=== PATIENT | female | born 1955 | race Hispanic/Latino ===

== ENCOUNTER 2020-04-30 14:49 | Emergency (ER) | payer OTHER, SELFPAY ==
--- OUTSIDE RECORDS SUMMARY | 2020-04-30 15:07 | XMS REPORT | Clinical Summary ---
:1955 Author Organization [facility] Address [address] [place] [address] Care Team Providers Name Role Phone Sharad Becker MD Primary Care Provider Allergies Active Allergy Reactions Severity Noted Date Comments Promethazine 07/23/2016 Medications Medication Sig Dispensed Refills Start Date End Date Status menthol-zinc oxide Apply 1 each 1 Tube 0 02/10/2017 Active (CALMOSEPTINE) topically 2 (two) 0.44-20.6 % times a day as ointmentIndications: needed (for skin Internal hemorrhoids irritation). with complication Active Problems Problem Noted Date Internal hemorrhoids with complication 11/11/2016 Constipation 11/11/2016 Anal spasm 07/06/2016 Internal hemorrhoids 07/06/2016 Rectal pain 07/06/2016 Constipation by outlet dysfunction 07/06/2016 Overview: "Urgent Desire for Stool" Social History Tobacco Use Types Packs/Day Years Used Date Never Smoker Sex Assigned at Date Recorded Not on file Job Start Date Occupation Industry Not on file Not on file Not on file Travel History Travel Start Travel End No recent travel history available. Last Filed Vital Signs Not on file Plan of Treatment Health Maintenance Due Date Last Done Comments CERVICAL CANCER SCREENING 1978 BREAST CANCER SCREENING 2007 COLONOSCOPY SCREENING 2007 SHINGLES VACCINES (#1) 2007 INFLUENZA VACCINE 04/20/2020 Results Not on fileafter 04/30/2019 Insurance Payer Benefit Plan / Group Subscriber ID Effective Phone Addre ss Type Dates MEDICARE MEDICARE PART A AND B xxxxxxxxxx 2014-Zina [facility] [place] [facility] xxxxxxxxx 2017-Zina HMO/PPO CHOICE/CHOICE + nt ([place]) [place] [address] Advance Directives For more information, please contact: [phone] Type Date Recorded Patient Inspector Electromechanical Explanati on Advance Directives, Living Will and Medical Power of Metal Slitter
--- OUTSIDE RECORDS SUMMARY | 2020-04-30 15:08 | XMS REPORT | Summary of Care ---
:1955 Author Organization [facility] Address [address] [place] [address] Care Team Providers Name Role Phone RositaSharad Elton Unavailable Elton Mai Primary Care Provider Reason for Visit Reason Comments Refill Request Encounter Details Date Type Department Care Team Description 03/25/2020 Telephone [facility] Endocrinology- Kita Perdomo MD Refill Request [address] [address] [address] [place] [address] [phone] Allergies Active Allergy Reactions Severity Noted Date Comments Etodolac Extra pyramidal effects 05/11/2018 Promethazine Hcl Other - See comments 07/13/2018 Pat ient states it makes her " Jumpy " documented as of this encounter (statuses as of 03/25/2020) Medications Medication Sig Dispensed Refills Start End Date Status Date ASPIRIN 81 MG ORAL 1 Tab Oral 60 0 Active CHEW DAILY 7 lisinopril 5 mg Take 5 mg by 0 A ctive tablet mouth daily. LORazepam 0.5 mg Take 2 mg by 0 Active tablet mouth. HYDROXYZINE PAMOATE Take 25 mg by 0 Active ORAL mouth 3 (three) times daily. busPIRone 7.5 mg Take 7.5 mg by 0 Active tablet mouth 3 (three) times daily. lancets (ONE TOUCH Use as 300 Each 1 A ctive DELICA) 33 gauge directed, TID, 8 Misc DX:E11.9 blade lancet, Use as 180 Each 3 Active safety (BD directed. 8 MICROTAINER LANCET) Twice daily 1.5 X 2 mm MiscIndications: Type 2 diabetes mellitus without complication, without long-term current use of insulin estradiol 0.01 % INSERT 1 GRAM 0 Active (0.1 mg/gram) VAGINALLY 3 8 vaginal cream TIMES PER WEEK (WEDNESDAY, WEDNESDAY AND WEDNESDAY) lithium carbonate TAKE 1 TABLET 0 Active 300 mg tablet BY MOUTH 8 EVERYDAY AT BEDTIME zolpidem 10 mg 0 Activ e tablet 8 dulaglutide inject 0.75 6 mL 2 Active (TRULICITY) 0.75 mcg under the 9 mg/0.5 mL skin weekly. PnIjIndications: Type 2 diabetes mellitus without complication, without long-term current use of insulin levothyroxine 100 Take 1 tablet 90 tablet 1 Active mcg by mouth every 0 tabletIndications: morning. Primary hypothyroidism metformin ER 500 mg Take 1 tablet 180 tablet 1 Active 24 hr by mouth 2 0 tabletIndications: (two) times Type 2 diabetes daily with mellitus without meals. complication, without long-term current use of insulin atorvastatin 80 mg Take 1 tablet 90 tablet 0 Active tabletIndications: by mouth at 0 Dyslipidemia bedtime. dapagliflozin Take 1 tablet 90 tablet 0 Ac tive (FARXIGA) 10 mg by mouth 0 tablet daily. ARIPiprazole 15 mg Take 1 tablet 0 Active tablet by mouth. 7 pioglitazone 30 mg Take 1 tablet 90 tablet 1 Active tabletIndications: by mouth 0 Type 2 diabetes daily. mellitus without complication, without long-term current use of insulin blood sugar Use to check 200 Strip 3 Activ e diagnostic (BLOOD blood sugar 2X 0 GLUCOSE TEST) daily. stripIndications: DX:E11.9 Type 2 diabetes mellitus without complication, without long-term current use of insulin Blood-Glucose Meter Use as 1 Each 0 Active (BLOOD GLUCOSE directed 2x 0 MONITORING) daily DX: KitIndications: E11.9 Type 2 diabetes mellitus without complication, without long-term current use of insulin Blood-Glucose Meter Use as 1 Each 0 03/25/20 Discontinued (BLOOD GLUCOSE directed 0 20 (Reor todd) MONITORING) KitIndications: Type 2 diabetes mellitus without complication, without long-term current use of insulin documented as of this encounter (statuses as of 03/25/2020) Active Problems Problem Noted Date Primary hypothyroidism 05/11/2018 Dyslipidemia 05/11/2018 Chest pain 10/13/2006 Overview: ICD10 Diagnosis Term Pc Installation Engineer Utility Essential hypertension 10/13/2006 Overview: ICD10 Diagnosis Term Pc Installation Engineer Utility HLD (hyperlipidemia) 10/13/2006 Overview: ICD10 Diagnosis Term Pc Installation Engineer Utility Type 2 diabetes mellitus without complications 007 Overview: ICD10 Diagnosis Term Pc Installation Engineer Utility documented as of this encounter (statuses as of 03/25/2020) Immunizations Name Administration Dates Next Due Influenza Virus Vaccine 06/09/2019, 06/08/2018 Pneumococcal Polysaccharide, PPSV23 (PNEUMOVAX) 06/13/2019 documented as of this encounter Social History Tobacco Use Types Packs/Day Years Used Date Former Smoker Quit: 1990 Smokeless Tobacco: Never Used Alcohol Use Drinks/Week oz/Week Comments No Sex Assigned at Date Recorded Not on file Job Start Date Occupation Industry Not on file Not on file Not on file Travel History Travel Start Travel End No recent travel history available. COVID-19 Exposure Response Date Recorded In the last month, have you been in contact with No / Unsure 03/25/2020 2:10 PM CDT someone who was confirmed or suspected to have Coronavirus / COVID-19? documented as of this encounter Last Filed Vital Signs Not on filedocumented in this encounter Plan of Treatment Date Type Specialty Care Team Description 07/08/2020 Office Visit Endocrinology Diabetes & TraesiKita gomez MD Metabolism [address] [place] [address] Health Maintenance Due Date Last Done Comments HEPATITIS C (HCV) SCREEN 1955 DTaP,Tdap,and Td Vaccines (1 - 1968 Tdap) Depression Screening 1969 Breast Cancer Screening 1997 (MAMMOGRAM) COLONOSCOPY 2007 Zoster Recombinant Vaccine 2007 (SHINGRIX) (1 of 2) HgA1C 05/15/2020 11/15/2019, 01/09/2019, 07/13/2018, Additional history exists INFLUENZA VACCINE (#1) 2020 06/09/2019, 06/08/2018 LDL-C 06/08/2020 06/08/2019, 07/13/2018, 10/13/2006 CREATININE (SERUM) 06/15/2020 06/15/2019, 07/13/2018, 10/14/2006, Additional history exists URINE MICROALBUMIN 07/11/2020 07/11/2019 EYE EXAM 08/29/2020 08/29/2019 FOOT EXAM 11/15/2020 11/15/2019, 11/15/2019, 07/11/2019, Additional history exists PAP SMEAR 09/21/2021 09/21/2018 PNEUMOCOCCAL 0-64 YEARS COMBINED Completed 06/13/2019 SERIES documented as of this encounter Results Not on filedocumented in this encounter Visit Diagnoses Diagnosis Type 2 diabetes mellitus without complic ation, without long-term current use of insulin documented in this encounter Insurance Payer Benefit Plan / Subscriber ID Effective Dates Phone Addre ss Type Group MEDICARE MEDICARE PART xxxxxxxxxxx 2014-Jase [phone] Medicare A & B t 2 [id number] [place] [id number] documented as of this encounter
--- OUTSIDE RECORDS SUMMARY | 2020-04-30 15:08 | XMS REPORT | Summary of Care ---
:1955 Author Organization [facility] Address [address] [place] [address] Care Team Providers Name Role Phone Sharad Becker Unavailable Elton Mai Primary Care Provider Reason for Visit Reason Comments Follow-up Diabetes Mellitus II Encounter Details Date Type Department Care Team Description 03/25/2020 Office Visit [facility] Kita Rodriguez, Type 2 miles betes mellitus without complication, without long-term current use of insulin (Primary Dx); Endocrinology- Dyslipidemia; [address] Essential hypertension; [address], [address] [place], [place] [id number] Allergies Active Allergy Reactions Severity Noted Date Comments Etodolac Extra pyramidal effects 05/11/2018 Promethazine Hcl Other - See comments 07/13/2018 Pat loli states it makes her " Jumpy " [...] Use as 300 Each 1 A ctive DELGLENYS) 33 gauge directed, TID, 8 Misc DX:E11.9 [...] complication, without long-term current use of insulin ARIPiprazole 15 mg Take 15 mg by 0 0 Discontinued tablet mouth daily. 20 (Error) Blood-Glucose Meter Use as 1 Kit 0 03/25/20 Discontinued (ONETOUCH VERIO directed, TID, 8 20 SYNC) Kit DX:E11.9 blood sugar Use as 200 Strip 1 03/25/20 Disconti nued diagnostic directed, BID, 8 20 (ACCU-CHEK GUIDE) DX:E11.9 strip ONETOUCH ULTRA BLUE USE 300 Strip 1 03/25/20 Discontinued TEST STRIP strip DIRECTED, 3 9 20 TIMES A DAY , DX:E11.9 pioglitazone 15 mg Take 1 tablet 30 tablet 3 0 Discontinued tabletIndications: by mouth 0 20 Type 2 diabetes daily. mellitus without complication, without long-term current use of insulin Blood-Glucose Meter Use as 1 Each 0 03/25/20 Discontinued (BLOOD GLUCOSE directed 0 20 (Reor todd) MONITORING) KitIndications: Type 2 diabetes mellitus without complication, without long-term current use of insulin blood sugar Use as 200 Strip 3 03/25/20 Disconti nued diagnostic (BLOOD directed 0 20 (R eorder) GLUCOSE TEST) stripIndications: Type 2 diabetes mellitus without complication, without long-term current use of insulin documented as of this encounter (statuses as of 03/25/2020) Active Problems Problem Noted Date Primary hypothyroidism 05/11/2018 Dyslipidemia 05/11/2018 Chest pain 10/13/2006 Overview: ICD10 Diagnosis Term Campaign Director Utility Essential hypertension 10/13/2006 Overview: ICD10 Diagnosis Term Campaign Director Utility HLD (hyperlipidemia) 10/13/2006 Overview: ICD10 Diagnosis Term Campaign Director Utility Type 2 diabetes mellitus without complications 007 Overview: ICD10 Diagnosis Term Campaign Director Utility documented as of this encounter (statuses [...] of this encounter Last Filed Vital Signs Vital Sign Reading Time Taken Comments Blood Pressure 106/54 03/25/2020 2:25 PM CDT Pulse 81 03/25/2020 2:25 PM CDT Temperature - - Respiratory Rate 16 03/25/2020 2:25 PM CDT Oxygen Saturation - - Inhaled Oxygen Concentration - - Weight 71.7 kg (158 lb) 03/25/2020 2:25 PM CDT Height 152.4 cm (5') 03/25/2020 2:25 PM CDT Body Mass Index 30.86 03/25/2020 2:25 PM CDT documented in this encounter Patient Instructions Patient InstructionsKita Rodriguez MD - 03/25/2020 2:00 PM CDTContinue metformin 500 mg twice daily Continue trulicity 0.75 mg weekly injections Increase actos to 30mg daily Continue farxiga 10 mg daily Blood glucose: 100-150. documented in this encounter Progress Notes Kita Rodriguez MD - 03/25/2020 2:00 PM CDT chief complaint: Type 2 diabetes mellitus- follow up HPI: Mary Baxter is a 64 year old /White female who is here today for Diabetes Mellitus Type 2. Type 2 Diabetes mellitus: Diagnosed around age 42 yrs Patient's diabetes is complicated by atherogenic diet, hyperlipidemia, hypertension , hypothyroidism and obesity. Complications-- no known complications. Interval Hx: MAICO 10/[address] Azul. Patient has no acute problems today. She had annual labs at his PCP last month and was told everything was good on blood work. She will get labs from her PCP office for our review BG monitoring: Infrequent checking Denied hypoglycemia would like to try freestyle michelle Diabetes Regimen: Patient is compliant with medication regimen: - Metformin ER 500 mg joseph daily, - Trulicity 0.75mg weekly(did not tolerate 1.5 mg dose) - Farxiga 10 mg ( denies UTI or yeast infection). Patient is less compliant with diet/exercise Dyslipidemia: On Lipitor 80 mg Hypothyroidism: managed by PCP. PCP reduce LT4 to 100 mcg in 03/2018 when labs showed subclinical hyperthyroidism. TFTs was normal in06/2019 and patient was advised to continue LT4 100mcg daily. In interim her PCP changed her LT4 from 100 to 125 and added liothyronine 5 mcg daily. DIABETIC HEALTH MAINTENANCE Last Ophthalmology visit was 07/[address]. no DR Patient on GABRIELA/ARB therapy - Yes Patient on ASA therapy - no Patient on Statin/Fibrate therapy - Yes. Patient instructed about daily feet exams, last sensation exam was 03/2020 Patient has received Nutrition/Diet/Diabetes Education on 12/2018 Patient's Medications START taking these medications BLOOD SUGAR DIAGNOSTIC (BLOOD GLUCOSE TEST) STRIP Use as directed BLOOD-GLUCOSE METER (BLOOD GLUCOSE MONITORING) KIT Use as directed PIOGLITAZONE 30 MG TABLET Take 1 tablet by mouth daily. CONTINUE taking these medications which have NOT CHANGED ARIPIPRAZOLE 15 MG TABLET Take 1 tablet by mouth. ASPIRIN 81 MG ORAL CHEW 1 Tab Oral DAILY ATORVASTATIN 80 MG TABLET Take 1 tablet by mouth at bedtime. BLADE LANCET, SAFETY (BD MICROTAINER LANCET) 1.5 X 2 MM MISC Use as directed. Twice daily BUSPIRONE 7.5 MG TABLET Take 7.5 mg by mouth 3 (three) times daily. DAPAGLIFLOZIN (FARXIGA) 10 MG TABLET Take 1 tablet by mouth daily. DULAGLUTIDE (TRULICITY) 0.75 MG/0.5 ML PNIJ inject 0.75 mcg under the skin weekly. ESTRADIOL 0.01 % (0.1 MG/GRAM) VAGINAL CREAM INSERT 1 GRAM VAGINALLY 3 TIMES PER WEEK (WEDNESDAY, WEDNESDAY AND WEDNESDAY) HYDROXYZINE PAMOATE ORAL Take 25 mg by mouth 3 (three) times daily. LANCETS (ONE TOUCH DELICA) 33 GAUGE MISC Use as directed, TID, DX:E11.9 LEVOTHYROXINE 100 MCG TABLET Take 1 tablet by mouth every morning. LISINOPRIL 5 MG TABLET Take 5 mg by mouth daily. LITHIUM CARBONATE 300 MG TABLET TAKE 1 TABLET BY MOUTH EVERYDAY AT BEDTIME LORAZEPAM 0.5 MG TABLET Take 2 mg by mouth. METFORMIN ER 500 MG 24 HR TABLET Take 1 tablet by mouth 2 (two) times daily with meals. ZOLPIDEM 10 MG TABLET START taking Modified Medications as Prescribed No medications on file STOP taking these medications ARIPIPRAZOLE 15 MG TABLET Take 15 mg by mouth daily. BLOOD SUGAR DIAGNOSTIC (ACCU-CHEK GUIDE) STRIP Use as directed, BID, DX:E11.9 BLOOD-GLUCOSE METER (ONETOUCH VERIO SYNC) KIT Use as directed, TID, DX:E11.9 ONETOUCH ULTRA BLUE TEST STRIP STRIP USE DIRECTED, 3 TIMES A DAY , DX:E11.9 PIOGLITAZONE 15 MG TABLET Take 1 tablet by mouth daily. HISTORY Past Medical History: Diagnosis Date Diabetes Dyslipidemia Past Surgical History: Procedure Laterality Date CHOLECYSTECTOMY HYSTERECTOMY Partial Family History Problem Relation Age of Onset [place] (myocardial infarction) Mother 59 [place] (myocardial infarction) Brother 59 Social History Socioeconomic History Marital status: Spouse name: Not on file Number of children: Not on file Years of education: Not on file Highest education level: Not on file Occupational History Not on file Social Needs Financial resource strain: Not on file Food insecurity: Worry: Not on file Inability: Not on file Transportation needs: Medical: Not on file Non-medical: Not on file Tobacco Use Smoking status: Former Smoker Last attempt to quit: 1990 Years since quittin.5 Smokeless tobacco: Never Used Substance and Sexual Activity Alcohol use: No Drug use: Not on file Sexual activity: Not on file Lifestyle Physical activity: Days per week: Not on file Minutes per session: Not on file Stress: Not on file Relationships Social connections: Talks on phone: Not on file Gets together: Not on file Attends sikhism service: Not on file Active member of club or organization: Not on file Attends meetings of clubs or organizations: Not on file Relationship status: Not on file Intimate partner violence: Fear of current or ex partner: Not on file Emotionally abused: Not on file Physically abused: Not on file Forced sexual activity: Not on file Other Topics Concern Not on file Social History Narrative Not on file REVIEW OF SYSTEMS Constitutional: + weight loss, denies fatigue and hair loss Eyes: denies blurry vision, denies diplopia and denies pain. Neck: denies pain, difficulty swallwoing Cardiovascular: denies chest pain , denies palpitations. Respiratory: denies dyspnea on exertion and denies shortness of breath. Gastrointestinal: denies abdominal pain, denies constipation and denies diarrhea. Genitourinary: denies burning and denies dysuria. Neuro: denies numbness , denies tingling and denies tremor. Psych: negative. Endocrine: denies intolerance to cold, denies intolerance to heat, denies polydipsia, denies polyphagia and denies polyuria. PHYSICAL EXAM BP 106/54 (BP Location: Left arm, Patient Position: Sitting, BP CUFF SIZE: Adult Large) | Pulse 81| Resp 16 | Ht 5' (1.524 m) | Wt 158 lb (71.7 kg) | BMI 30.86 kg/m General: alert, oriented times three, no apparent distress, appearing age appropriate. Skin: skin color and turgor are normal Head: normocephalic, no masses, lesions, tenderness or abnormalities. Eyes: anicteric sclera, no abnormal stare, lid lag Neck: supple, mild acanthosis nigricans Thyroid: normal size and consistency to palaption Lungs: good diaphragmatic excursion, lungs clear to auscultation bilaterally. Heart: regular rate and rhythm, no murmurs, gallops or rubs. Abdomen: abdomen soft, non-tender. Neuro: DTRs normal Extremities/Musculoskeletal: no cyanosis, no edema . Sensory exam of the foot is normal. Monofilament exam with sensation Right: 5/5, Left: 5/5. Lesions absent Ulcers Absent Peripheral pulses present 2+. 12/2017 CMP, UA , Lipid panel normal a1C 6.2 TSH low FT4 at 1.8 03/2018: Lipid panel at goal A1C 6.8 CMP normal 10/2018 Lipid panel with high TG 279, HDL 62. Otherwise normal CMP, normal TFT's normal 05/2019 A1C=7.2 E GFR=83, AST/ALT=08/01 RR=709/TA=081/HDL=67/LDL=91 06/2019 TFTs normal UMAB normal ASSESSMENT/PLAN ICD-10-CM ICD-9-CM 1. Type 2 diabetes mellitus without complication, without long-term current use of insulin E11.9 250.00 2. Dyslipidemia E78.5 272.4 3. Essential hypertension I10 401.9 4. Primary hypothyroidism E03.9 244.9 1. Type 2 diabetes mellitus without complication, without long-term current use of insulin -A1C (target=6-7%): 6.4 (01/06) -->7.2(07/08) -->7.7(11/09)-->8.2(03/2020)worsened due to lesscompliance with diet -glucose range: not checking . -complication: none at this time -medication: metformin+actos+farxiga+trulicity. Will continue same and increase actos to 30 -diet: high carbs food. Instructed on portion control and foods to avoid -exercise: less compliant Plan -reinterated to check glucosedaily alternating fasting and 2 hours post meals - emphasized on TLC - continue metformin 500 mg BID - continue trulicity 0.75 mg weekly - continue farxiga 10 mg daily - increase actos to 30 mg daily - annual labs-- will fax from PCP office - Ophthalmology-- UTD 2. Dyslipidemia No recent FLP. She will get labs from PCP Plan Continue atorvastatin 80 mg tablet; Take 1 tablet by mouth at bedtime. 3. Essential hypertension BP in clnic was at target Plan continue current lisinopril 5mg daily. Refilled by PCP 4. Primary hypothyroidism Patient is euthyroid in exam Managed by PCP Plan Continue levothyroxine 125 mcg tablet and liothyronine 5 mcg daily Return in about 3 months (around 06/25/2020). Orders Placed This Encounter Procedures POCT HEMOGLOBIN A1C TEST Kita Rodriguez MD Quality Assurance Supervisor Body Endocrinology, Diabetes and Metabolism documented in this encounter Plan of Treatment Date Type Specialty Care Team Description 07/08/2020 Office Visit Endocrinology Diabetes & Kita Nevarez MD Metabolism [address] [place], [place] [id number] Health Maintenance Due Date Last Done Comments [...] 06/13/2019 SERIES documented as of this encounter Procedures Procedure Name Priority Date/Time Associated Diagnosis Comme nts POCT HEMOGLOBIN A1C Routine 03/25/2020 Type 2 diabetes Resul ts for this TEST mellitus without procedure a re in the complication, without result s section. long-term current use of insulin documented in this encounter Results POCT HEMOGLOBIN A1C TEST (03/25/2020) Pathologist Sig nature POCT HBA1C 8.2 (A) 4 - 6 % Specimen Blood - CAPILLARY documented in this encounter Visit Diagnoses Diagnosis Type 2 diabetes mellitus without complic ation, without long-term current use of insulin - Primary Dyslipidemia Other and unspecified hyperlipidemia Essential hypertension Unspecified essential hypertension Primary hypothyroidism Unspecified hypothyroidism documented in this encounter Insurance Payer Benefit Plan / Subscriber ID Effective Dates Phone Addre ss Type Group MEDICARE MEDICARE PART xxxxxxxxxxx 2014-Jase [phone] [address] Medicare A & B t 2 [id number] [place] [phone] documented as of this encounter
--- OUTSIDE RECORDS SUMMARY | 2020-04-30 15:08 | XMS REPORT | Summary of Care ---
:1955 Author Organization [facility] Address [address] [place] [address] Care Team Providers Name Role Phone BeckerSharad Elton Unavailable Elton Mai Primary Care Provider Reason for Visit Reason Comments Rx Concern/Question Encounter Details Date Type Department Care Team Description 03/25/2020 Telephone [facility] Kita Rodriguez MD Rx Concern/Question Endocrinology- [address] [id number] [phone] Allergies Active Allergy Reactions Severity Noted Date [...] 1 Each 0 Active (BLOOD GLUCOSE directed 0 MONITORING) KitIndications: Type 2 diabetes mellitus without [...] Chest pain 10/13/2006 Overview: ICD10 Diagnosis Term Project Management Specialist Utility Essential hypertension 10/13/2006 Overview: ICD10 Diagnosis Term Project Management Specialist Utility HLD (hyperlipidemia) 10/13/2006 Overview: ICD10 Diagnosis Term Project Management Specialist Utility Type 2 diabetes mellitus without complications 007 Overview: ICD10 Diagnosis Term Project Management Specialist Utility documented as of this encounter (statuses [...] Description 07/08/2020 Office Visit Endocrinology Diabetes & Kesired Kita orta MD Metabolism [address] [place], [place] [id number] Health Maintenance Due Date Last Done Comments [...] BOX Medicare A & B t 2 [id number] [place] [phone] documented as of this encounter
--- OUTSIDE RECORDS SUMMARY | 2020-04-30 15:08 | XMS REPORT | Summary of Care ---
:1955 Author Organization [facility] Address [address] [place] [address] Care Team Providers Name Role Phone Sharad Becker Unavailable Elton Mai Primary Care Provider Reason for Visit Reason Comments Follow-up Diabetes Mellitus II Encounter Details Date Type Department Care Team Description 03/25/2020 Office Visit [facility] Kita Rodriguez, Type 2 miles betes mellitus without complication, without long-term current use of insulin (Primary Dx); Endocrinology- Dyslipidemia; [address] Essential hypertension; [address], [address] [place], [place] [phone] Allergies Active Allergy Reactions Severity Noted [...] Chest pain 10/13/2006 Overview: ICD10 Diagnosis Term 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 Utility Essential hypertension 10/13/2006 Overview: ICD10 Diagnosis Term Millinery Worker Utility HLD (hyperlipidemia) 10/13/2006 Overview: ICD10 Diagnosis Term Millinery Worker Utility Type 2 diabetes mellitus without complications 007 Overview: ICD10 Diagnosis Term Millinery Worker Utility documented as of this encounter (statuses [...] Family History Problem Relation Age of Onset MS (myocardial infarction) Mother 59 MS (myocardial infarction) Brother 59 Social History Socioeconomic [...] file Gets together: Not on file Attends yazdanism service: Not on file Active member of [...] TFT's normal 05/2019 A1C=7.2 E GFR=83, AST/ALT=08/01 DA=413/AE=261/HDL=67/LDL=91 06/2019 TFTs normal [facility] normal ASSESSMENT/PLAN ICD-10-CM [...] POCT HEMOGLOBIN A1C TEST Kita Rodriguez MD Associate Professor Of Anthropology Endocrinology, Diabetes and Metabolism documented in this encounter Plan of Treatment Date Type Specialty Care Team Description 07/08/2020 Office Visit Endocrinology Diabetes & Kita Nevarez MD Metabolism [address] [place], [place] [phone] Health Maintenance Due Date Last Done Comments [...] BOX Medicare A & B t 2 [id number] [place] [id number] documented as of this encounter
--- OUTSIDE RECORDS SUMMARY | 2020-04-30 15:09 | XMS REPORT | Summary of Care ---
:1955 Author Organization [facility] Address [address] [place] [address] Care Team Providers Name Role Phone RositaSharad Elton Unavailable Elton Mai Primary Care Provider Reason for Visit Reason Comments Refill Request Encounter Details Date Type Department Care Team Description 03/31/2020 Refill [facility] Endocrinology- Jonnathan Azul MD Refill Request [address] [address] [address] [place] [address] [phone] Allergies Active Allergy Reactions Severity Noted Date Comments Etodolac Extra pyramidal effects 05/11/2018 Promethazine Hcl Other - See comments 07/13/2018 Pat ient states it makes her " Jumpy " documented as of this encounter (statuses as of 04/01/2020) Medications Medication Sig Dispensed Refills Start Date End Date Status ASPIRIN 81 MG ORAL 1 Tab Oral 60 0 10/14/2006 Active CHEW DAILY lisinopril 5 mg Take 5 mg by 0 A ctive tablet mouth daily. LORazepam 0.5 mg Take 2 mg by 0 Active tablet mouth. HYDROXYZINE PAMOATE Take 25 mg by 0 Active ORAL mouth 3 (three) times daily. busPIRone 7.5 mg Take 7.5 mg by 0 Active tablet mouth 3 (three) times daily. blade lancet, safety Use as 180 Each 3 05/11/2018 Active (BD MICROTAINER directed. LANCET) 1.5 X 2 mm Twice daily MiscIndications: Type 2 diabetes mellitus without complication, without long-term current use of insulin estradiol 0.01 % INSERT 1 GRAM 0 04/08/2018 Active (0.1 mg/gram) VAGINALLY 3 vaginal cream TIMES PER WEEK (WEDNESDAY, WEDNESDAY AND WEDNESDAY) lithium carbonate TAKE 1 TABLET 0 05/24/2018 Active 300 mg tablet BY MOUTH EVERYDAY AT BEDTIME zolpidem 10 mg 0 07/07/2018 Acti ve tablet dulaglutide inject 0.75 6 mL 2 07/18/2019 Activ e (TRULICITY) 0.75 mcg under the mg/0.5 mL skin weekly. PnIjIndications: Type 2 diabetes mellitus without complication, without long-term current use of insulin levothyroxine 100 Take 1 tablet 90 tablet 1 11/15/2019 Active mcg by mouth every tabletIndications: morning. Primary hypothyroidism metformin ER 500 mg Take 1 tablet 180 tablet 1 11/15/2019 Active 24 hr by mouth 2 tabletIndications: (two) times Type 2 diabetes daily with mellitus without meals. complication, without long-term current use of insulin dapagliflozin Take 1 tablet 90 tablet 0 01/12/2020 A ctive (FARXIGA) 10 mg by mouth tablet daily. ARIPiprazole 15 mg Take 1 tablet 0 02/11/2017 Active tablet by mouth. pioglitazone 30 mg Take 1 tablet 90 tablet 1 03/25/2020 Active tabletIndications: by mouth Type 2 diabetes daily. mellitus without complication, without long-term current use of insulin blood sugar Use to check 200 Strip 3 03/25/2020 Acti ve diagnostic (BLOOD blood sugar 2X GLUCOSE TEST) daily. stripIndications: DX:E11.9 Type 2 diabetes mellitus without complication, without long-term current use of insulin Blood-Glucose Meter Use as 1 Each 0 03/25/2020 Active (BLOOD GLUCOSE directed 2x MONITORING) daily DX: KitIndications: Type E11.9 2 diabetes mellitus without complication, without long-term current use of insulin lancets (ONE TOUCH Use to check 300 Each 1 03/28/2020 Active DELICA) 33 gauge blood sugar 3X Misc daily. DX:E11.9 ATORVASTATIN 80 mg TAKE 1 TABLET 90 tablet 1 04/01/2020 Active tabletIndications: BY MOUTH Dyslipidemia EVERYDAY AT BEDTIME atorvastatin 80 mg Take 1 tablet 90 tablet 0 01/05/2020 Discontinued tabletIndications: by mouth at 0 Dyslipidemia bedtime. 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 Utility Type 2 diabetes mellitus without complications 007 Overview: ICD10 Diagnosis Term Plastics Repairer Utility documented as of this encounter (statuses as of 04/01/2020) Immunizations Name Administration Dates Next Due Influenza [...] Diabetes & Kesired Kita orta MD Metabolism [address] [place] [address] [phone] Health Maintenance Due Date Last Done Comments HEPATITIS C (HCV) SCREEN 1955 DTaP,Tdap,and Td Vaccines (1 - 1968 Tdap) Depression Screening 1969 Breast Cancer Screening 1997 (MAMMOGRAM) COLONOSCOPY 2007 Zoster Recombinant Vaccine 2007 (SHINGRIX) (1 of 2) INFLUENZA VACCINE (#1) 2020 06/09/2019, 06/08/2018 LDL-C 06/08/2020 06/08/2019, 07/13/2018, 10/13/2006 CREATININE (SERUM) 06/15/2020 06/15/2019, 07/13/2018, 10/14/2006, Additional history exists URINE MICROALBUMIN 07/11/2020 07/11/2019 EYE EXAM 08/29/2020 08/29/2019 HgA1C 09/25/2020 03/25/2020, 11/15/2019, 01/09/2019, Additional history exists FOOT EXAM 03/25/2021 03/25/2020, 03/25/2020, 11/15/2019, Additional history exists PAP SMEAR 09/21/2021 09/21/2018 PNEUMOCOCCAL 0-64 YEARS COMBINED Completed 06/13/2019 SERIES documented as of this encounter Results Not on filedocumented in this encounter Visit Diagnoses Diagnosis Dyslipidemia Other and unspecified hyperlipidemia documented in this encounter Insurance Payer Benefit Plan / Subscriber ID Effective Dates Phone Addre ss Type Group MEDICARE MEDICARE PART xxxxxxxxxxx 2014-Jase [phone] [address] Medicare A & B t 2 [id number] [place] [id number] documented as of this encounter
--- OUTSIDE RECORDS SUMMARY | 2020-04-30 15:09 | XMS REPORT | Summary of Care ---
:1955 Author Organization [facility] Address [address] [place] [address] Care Team Providers Name Role Phone BeckerSharad Elton Unavailable Elton Mai Primary Care Provider Reason for Visit Reason Comments Refill Request Encounter Details Date Type Department Care Team Description 03/28/2020 Refill [facility] Endocrinology- Kita Perdomo MD Refill Request [id number] [place] [address] [phone] Allergies Active Allergy Reactions Severity Noted Date Comments Etodolac Extra pyramidal effects 05/11/2018 Promethazine Hcl Other - See comments 07/13/2018 Pat ient states it makes her " Jumpy " documented as of this encounter (statuses as of 03/28/2020) Medications Medication Sig Dispensed Refills Start End [...] mouth 3 (three) times daily. blade lancet, Use as 180 Each 3 [...] TOUCH Use to check 300 Each 1 Active DELICA) 33 gauge blood sugar 3X 0 Misc daily. DX:E11.9 lancets (ONE TOUCH Use as 300 Each 1 03/28/20 D iscontinued DELICA) 33 gauge directed, TID, 8 20 (Reorder) Misc DX:E11.9 documented as of this encounter (statuses as of 03/28/2020) Active Problems Problem Noted Date Primary hypothyroidism 05/11/2018 Dyslipidemia 05/11/2018 Chest pain 10/13/2006 Overview: ICD10 Diagnosis Term Suction Roller Utility Essential hypertension 10/13/2006 Overview: ICD10 Diagnosis Term Suction Roller Utility HLD (hyperlipidemia) 10/13/2006 Overview: ICD10 Diagnosis Term Suction Roller Utility Type 2 diabetes mellitus without complications 007 Overview: ICD10 Diagnosis Term Suction Roller Utility documented as of this encounter (statuses as of 03/28/2020) Immunizations Name Administration Dates Next Due Influenza [...] Diabetes & Kita Nevarez MD Metabolism [address] [place], [place] [phone] Health Maintenance Due Date Last Done Comments [...] Results Not on filedocumented in this encounter Insurance Payer Benefit Plan / Subscriber ID Effective Dates Phone Addre ss Type Group MEDICARE MEDICARE PART xxxxxxxxxxx 2014-Jase [phone] [address] Medicare A & B t 2 [id number] [place] [id number] documented as of this encounter
--- OUTSIDE RECORDS SUMMARY | 2020-04-30 15:09 | XMS REPORT | Summary of Care ---
:1955 Author Organization [facility] Address [address] [place] [address] Care Team Providers Name Role Phone Sharad Becker Unavailable Elton Mai Primary Care Provider Encounter Details Date Type Department Care Team Description 04/17/2020 Orders Only [facility] Doctor Unassigned, No [address] [facility] Name [address] [phone] Allergies Active Allergy Reactions Severity Noted Date Comments Etodolac Extra pyramidal effects 05/11/2018 Promethazine Hcl Other - See comments 07/13/2018 Pat baileyvic states it makes her " Jumpy " documented as of this encounter (statuses as of 04/17/2020) Medications Medication Sig Dispensed Refills Start Date End Date Status ASPIRIN 81 MG ORAL 1 Tab Oral DAILY 60 0 10/14/2006 Active CHEW lisinopril 5 mg tablet Take 5 mg by 0 Active mouth daily. LORazepam 0.5 mg Take 2 mg by 0 Active tablet mouth. HYDROXYZINE PAMOATE Take 25 mg by 0 Active ORAL mouth 3 (three) times daily. busPIRone 7.5 mg Take 7.5 mg by 0 Active tablet mouth 3 (three) times daily. blade lancet, safety Use as directed. 180 Each 3 05/11/2018 Active (BD MICROTAINER Twice daily LANCET) 1.5 X 2 mm MiscIndications: Type 2 diabetes mellitus without complication, without long-term current use of insulin estradiol 0.01 % (0.1 INSERT 1 GRAM 0 04/08/2018 Active mg/gram) vaginal cream VAGINALLY 3 TIMES PER WEEK (WEDNESDAY, WEDNESDAY AND WEDNESDAY) lithium carbonate 300 TAKE 1 TABLET BY 0 05/24/2018 Active mg tablet MOUTH EVERYDAY AT BEDTIME zolpidem 10 mg tablet 0 07/07/2018 Active dulaglutide inject 0.75 mcg 6 mL 2 07/18/2019 A ctive (TRULICITY) 0.75 under the skin mg/0.5 mL weekly. PnIjIndications: Type 2 diabetes mellitus without complication, without long-term current use of insulin levothyroxine 100 mcg Take 1 tablet by 90 tablet 1 11/15/2019 Active tabletIndications: mouth every Primary hypothyroidism morning. metformin ER 500 mg 24 Take 1 tablet by 180 tablet 1 0 Active hr tabletIndications: mouth 2 (two) Type 2 diabetes times daily with mellitus without meals. complication, without long-term current use of insulin dapagliflozin Take 1 tablet by 90 tablet 0 01/12/2020 Active (FARXIGA) 10 mg tablet mouth daily. ARIPiprazole 15 mg Take 1 tablet by 0 02/11/2017 Active tablet mouth. pioglitazone 30 mg Take 1 tablet by 90 tablet 1 03/25/2020 Active tabletIndications: mouth daily. Type 2 diabetes mellitus without complication, without long-term current use of insulin blood sugar diagnostic Use to check 200 Strip 3 03/25/2020 Active (BLOOD GLUCOSE TEST) blood sugar 2X stripIndications: Type daily. DX:E11.9 2 diabetes mellitus without complication, without long-term current use of insulin Blood-Glucose Meter Use as directed 1 Each 0 03/25/2020 Active (BLOOD GLUCOSE 2x daily DX: MONITORING) E11.9 KitIndications: Type 2 diabetes mellitus without complication, without long-term current use of insulin lancets (ONE TOUCH Use to check 300 Each 1 03/28/2020 Active DELICA) 33 gauge Misc blood sugar 3X daily. DX:E11.9 ATORVASTATIN 80 mg TAKE 1 TABLET BY 90 tablet 1 04/01/2020 Active tabletIndications: MOUTH EVERYDAY AT Dyslipidemia BEDTIME documented as of this encounter (statuses as of 04/17/2020) Active Problems Problem Noted Date Primary hypothyroidism 05/11/2018 Dyslipidemia 05/11/2018 Chest pain 10/13/2006 Overview: ICD10 Diagnosis Term Director State Pharmacy Utility Essential hypertension 10/13/2006 Overview: ICD10 Diagnosis Term Director State Pharmacy Utility HLD (hyperlipidemia) 10/13/2006 Overview: ICD10 Diagnosis Term Director State Pharmacy Utility Type 2 diabetes mellitus without complications 007 Overview: ICD10 Diagnosis Term Director State Pharmacy Utility documented as of this encounter (statuses as of 04/17/2020) Immunizations Name Administration Dates Next Due Influenza [...] Endocrinology Diabetes & TraesiKita gomez MD Metabolism [address] [place] [address] [phone] Health Maintenance Due Date Last Done Comments [...] Name Priority Date/Time Associated Diagnosis Comme nts EXTERNAL PROVIDER Routine 04/17/2020 12:01 AM CDT RECORDS documented in this encounter Results Not on filedocumented in this encounter Insurance Payer Benefit Plan / Subscriber ID Effective Dates Phone Addre ss Type Group MEDICARE MEDICARE PART xxxxxxxxxxx 2014-Jase [phone] [address] Medicare A & B t 2 [id number] [place] [id number] documented as of this encounter
--- OUTSIDE RECORDS SUMMARY | 2020-04-30 15:10 | XMS REPORT | Continuity of Care Document ---
:1955 Author Organization [facility] t Address [address] [place] [address] Dr. [address]. [address] [place] [address] Care Team Providers Name Role Phone Rosita LEBRON Primary Care Physician Jorge Alberto LEBRON Attending Clinician Doctor Unassigned, Name Attending Clinician Unavailable Jennifer LEBRON Attending Clinician Problems Condition Condition Condition Status Onset Resolution Last Treating Co mments Source Name Details Category Date Date Treatment Clinician Date Internal Internal Disease Active [place] hemorrhoid hemorrhoid 2- Me thodi s with s with 00:00: st complicati complicati 00 on on Constipati Constipati Disease Active [place] on 11-11 [facility] 00:00: st 00 Anal spasm Anal spasm Disease Active 2015-09 [place] 0-17 Methodi 00:00: st 00 Internal Internal Disease Active 2015-09 [place] hemorrhoid hemorrhoid 0-17 Me thodi s s 00:00: st 00 Rectal Rectal Disease Active 2015-09 [place] pain pain 0-17 Methodi 00:00: st 00 Constipati Constipati Disease Active 2015-09 Overview : [place] on by on by 0-17 "Urgent Methodi outlet outlet 00:00: Desire st dysfunctio dysfunctio 00 for n n Stool" Allergies, Adverse Reactions, Alerts Allergy Allergy Status Severity Reaction(s) Onset Inactive Treating Comm ents Source Name Type Date Date Clinician Luis E Niño Active 2015-09 Ministerio sanabria ty to 09-22 Methodi adverse 00:00: st reaction 00 s to drug Social History Social Habit Start Date Stop Date Quantity Comments Source Sex Assigned At [place] [facility] [employer] Smoking Status Start Date Stop Date Source Never smoker [facility] t Medications Ordered Filled Start Stop Current Ordering Indication Dosage Frequency Signature Comments Components Source Medication Medication Date Date Medication? Clinician (SIG) Name Name mentreinier-vincent Yes Internal 1{each} Q.5D Apply 1 German c oxide 5-24 hemorrhoids each Metho di (CALMOSEPTI 00:00: with topically s t NE) 00 complicatio 2 (two) 0.44-20.6 % n times a ointment day as needed (for skin irritation ). Procedures This patient has no known procedures. Plan of Care Planned Activity Planned Date Details Comments Source Future Scheduled 2020-04-20 INFLUENZA VACCINE Lelemac henry [employer] Test 00:00:00 [code = INFLUENZA VACCINE] Future Scheduled 2007 BREAST CANCER [facility] thodist Test 00:00:00 SCREENING [code = BREAST CANCER SCREENING] Future Scheduled [facility]00 [code = COLONOSCOPY SCREENING] Future Scheduled 2007 SHINGLES VACCINES Ministerio n [employer] Test 00:00:00 (#1) [code = SHINGLES VACCINES (#1)] Future Scheduled 1978 Screening for [facility] thodist Test 00:00:00 malignant neoplasm of cervix (procedure) [code = 052728603] Encounters Start End Encounter Admission Attending Care Care Encounter Source Date/Time Date/Time Type Type Clinicians Facility Department ID 2020-04-27 2020-04-27 Refill JJ Azul [id number] 00:00:00 00:00:00 Jonnathan Rodriguez [id number] [place] [id number] Ugo [id number] [facility] [address] Building 2020-04-17 2020-04-17 Orders Doctor ARENAS [id number] 00:00:00 00:00:00 Only UnassignedGAB [id number] [facility] [id number] 2020-03-31 2020-03-31 Refill Jorge Alberto [facility] [id number] 00:00:00 00:00:00 Jonnathan Raviton [id number] [place] [id number] Professio [phone] [facility] [address] [facility] 2020-03-28 2020-03-28 Refill Jennifer [facility] [id number] 00:00:00 00:00:00 Kita Jennifer [id number] [place] [id number] Professio [phone] [facility] [address] [facility] 2020-03-25 2020-03-25 Office Jennifer [facility] [id number] 14:12:02 15:08:05 Visit Kita Jennifer [id number] [place] [id number] Professio [phone] [facility] [address] [facility] Results This patient has no known results.
--- OUTSIDE RECORDS SUMMARY | 2020-04-30 15:10 | XMS REPORT | Summary of Care ---
:1955 Author Organization [facility] Address [address] [place] [address] Care Team Providers Name Role Phone RositaSharad Elton Unavailable Elton Mai Primary Care Provider Reason for Visit Reason Comments Refill Request Encounter Details Date Type Department Care Team Description 04/27/2020 Refill [facility] Endocrinology- Jonnathan Azul MD Refill Request [address] [address] [address] [place] [address] [phone] Allergies Active Allergy Reactions Severity Noted Date Comments Etodolac Extra pyramidal effects 05/11/2018 Promethazine Hcl Other - See comments 07/13/2018 Pat ient states it makes her " Jumpy " documented as of this encounter (statuses as of 04/29/2020) Medications Medication Sig Dispensed Refills Start Date [...] use of insulin ARIPiprazole 15 mg Take 1 tablet 0 [...] tabletIndications: BY MOUTH Dyslipidemia EVERYDAY AT BEDTIME FARXIGA 10 mg tablet TAKE 1 TABLET 90 tablet 1 04/29/2020 Active BY MOUTH EVERY DAY dapagliflozin Take 1 tablet 90 tablet 0 01/12/2020 D iscontinued (FARXIGA) 10 mg by mouth 0 tablet daily. documented as of this encounter (statuses as of 04/29/2020) Active Problems Problem Noted Date Primary hypothyroidism 05/11/2018 Dyslipidemia 05/11/2018 Chest pain 10/13/2006 Overview: ICD10 Diagnosis Term Site Controller Utility Essential hypertension 10/13/2006 Overview: ICD10 Diagnosis Term Site Controller Utility HLD (hyperlipidemia) 10/13/2006 Overview: ICD10 Diagnosis Term Site Controller Utility Type 2 diabetes mellitus without complications 007 Overview: ICD10 Diagnosis Term Site Controller Utility documented as of this encounter (statuses as of 04/29/2020) Immunizations Name Administration Dates Next Due Influenza Virus Vaccine 06/09/2019, 06/08/2018 Pneumococcal Polysaccharide, PPSV23 (PNEUMOVAX) 06/13/2019 documented as of this encounter Social History Tobacco Use Types Packs/Day Years Used Date Former Smoker Quit: 1990 Smokeless Tobacco: Never Used Alcohol Use Drinks/Week oz/Week Comments No Sex Assigned at Date Recorded Not on file documented as of this encounter Last Filed Vital Signs Not on filedocumented in this encounter Miscellaneous Notes Telephone Encounter - Mary Baldwin RN - 04/29/2020 8:35 AM CDTNOV: 07/08/20 MAICO: 03/25/20 Plan: - continue farxiga 10 mg daily Refill sent. documented in this encounter Plan of Treatment Date Type Specialty Care Team Description 07/08/2020 Office Visit Endocrinology Diabetes & Kesired Kita orta MD Metabolism [address] [place], [place] [phone] Health Maintenance Due Date Last Done Comments HEPATITIS C (HCV) SCREEN 1955 Depression Screening 1969 DTaP,Tdap,and Td Vaccines (1 - 1976 Tdap) Breast Cancer Screening 1997 (MAMMOGRAM) COLON CANCER SCREENING ANNUAL 2007 FIT/FOBT COLON CANCER SCREENING FIT DNA 2007 EVERY 3 YEARS COLON CANCER SCREENING 2007 SIGMOIDOSCOPY EVERY 5 YEARS COLONOSCOPY 2007 Colorectal Cancer Screening 2007 Zoster Recombinant Vaccine 2007 (SHINGRIX) (1 [...] Addre ss Type Group MEDICARE MEDICARE PART [id number] 2014-Jase [phone] [address] Medicare A & B t 2 [id number] [place] [phone] documented as of this encounter
[2020-04-30] MEDS ORDERED: CODEINE 30MG/APAP 300MG TAB ONE (15:40)
[2020-04-30] MEDS ORDERED: ONDANSETRON 4 MG (ODT) TAB ONE (15:41)
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
[2020-04-30 17:37] VITALS: TEMP 98.3
--- NOTE | 2020-04-30 17:37 | RAD REPORT ---
EXAM DESCRIPTION: RAD - Shoulder Left 2 View - 04/30/2020 5:07 pm CLINICAL HISTORY: PAIN COMPARISON: No comparisons FINDINGS: No acute fracture or dislocation. Mild AC joint and glenohumeral joint arthritic changes. Small amount of calcific tendinitis is suspected.
[2020-04-30 17:38] VITALS: BP 113/82; O2SAT 97
== END 2020-04-30 16:55 | disposition home or self-care (01) ==
LOC: ER 14:49
DX: S16.1XXA Strain of muscle, fascia and tendon at neck level, initial encounter (principal); V49.49XA Driver injured in collision with other motor vehicles in traffic accident, initial encounter; Z88.5 Allergy status to narcotic agent; Z88.8 Allergy status to other drugs, medicaments and biological substances
CPT/HCPCS: 72125; 99283

== ENCOUNTER 2022-11-19 08:43 | Emergency (ER) | payer OTHER ==
--- OUTSIDE RECORDS SUMMARY | 2022-11-19 08:47 | XMS REPORT | Clinical Summary ---
:1955 Author Organization [facility] Address [address] [place] [address] Care Team Providers Name Role Phone Vivian Ramos MD Primary Care Provider Kenzie Duggan MD Unavailable Kenzie Duggan MD Unavailable Allergies Active Allergy Reactions Severity Noted Date Comments Etodolac 08/26/2016 Promethazine 08/26/2016 Medications Medication Sig Dispensed Refills Start Date End Date Status calcium carbonate Take 1 tablet by 0 Active (CALCIUM 600) 600 mg mouth daily. (1,500 mg) tablet hydrOXYzine pamoate Take 1 capsule by 0 Active (VISTARIL) 25 mg mouth daily. capsule lisinopril Take 1 tablet by 0 Ac tive (PRINIVIL,ZESTRIL) 20 mouth daily. mg tablet lithium (LITHANE) 300 Take 1 tablet by 0 Active mg tablet mouth daily. LORazepam (ATIVAN) 1 Take 1 tablet by 0 Active mg tablet mouth daily. metFORMIN Take 1,000 mg by 0 Act colten (GLUCOPHAGE-XR) 500 mg mouth 2 (two) 24 hr tablet times a day with meals. VIIBRYD 40 mg tab Take 1 tablet by 0 08/26/2016 Active mouth daily. zolpidem (AMBIEN) 10 Take 1 tablet by 0 08/25/2016 Active mg tablet mouth daily. pioglitazone (ACTOS) Take 1 tablet by 0 Active 30 mg tablet mouth daily. ARIPiprazole (ABILIFY) Take 1 tablet by 0 02/11/2017 Active 15 MG tablet mouth daily. citalopram (CeleXA) 10 Take 1 tablet by 0 02/09/2017 Active mg tablet mouth daily. estradiol (ESTRACE) INSERT 1 GRAM 42.5 g 3 04/08/2018 Active 0.1 mg/g (0.01%) VAGINALLY 3 TIMES vaginal PER WEEK (WEDNESDAY, creamIndications: Mild WEDNESDAY AND vaginal dysplasia WEDNESDAY) GLIPIZIDE ORAL Take 2 mg by mouth 0 Active daily. dapagliflozin Take 10 mg by 0 Ac tive (FARXIGA) 10 mg tab mouth twice daily. levothyroxine sodium Take 110 mg by 0 Active (LEVOTHYROXINE ORAL) mouth daily. 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 Surgical History Surgery Date Site/Laterality Comments COLONOSCOPY 09/20/2015 - 09/19/2016 CHOLECYSTECTOMY 09/20/1995 - 09/19/1996 TOTAL VAGINAL HYSTERECTOMY 09/20/1995 - 09/19/1996 BLADDER SUSPENSION 09/20/1995 - 09/19/1996 ANKLE SURGERY KNEE ARTHROSCOPY W/ DEBRIDEMENT Medical History Medical History Date Comments Hypertension 1999 Hyperlipidemia 1999 Disorder of thyroid gland 1995 Diabetes mellitus 1999 Depressive disorder 2010 Anxiety 2010 Bipolar disorder 2010 Herpes simplex 2007 Cold sores/ Social History Tobacco Use Types Packs/Day Years Used Date Smoking Tobacco: Former Cigarettes 0.3 2 Smokeless Tobacco: Never Alcohol Use Standard Drinks/Week Comments Yes 0 (1 standard drink = 0.6 oz pure alcoho l) wine cooler 2-3 once a month Sex Assigned at Date Recorded Not on file Obstetrics History Para Term AB IAB SAB Ectopic Multiple Living Live Births 2 2 2 2 Date Outcome GA Total Labor/2nd/3rd Weight Sex Delivery Anes PTL Alina A 1 A5 Name Clin Labor Term Vag-Spont Term Vag-Spont Last Filed Vital Signs Not on file Plan of Treatment Health Maintenance Due Date Last Done Comments COVID-19 Vaccination (#1) 02/05/1956 Results Not on fileafter 11/19/2021 Insurance Payer Benefit Plan / Subscriber ID Effective Dates Phone Addre ss Type Group MEDICARE MEDICARE PART [id number] 2014-Jase [phone] [facility] Medicare A AND B t 2 SOLUTIONS [address] [place] [id number] Care Teams Loom Doffer Relationship Specialty Start Date End Date Vivian Ramos, PCP - General Gynecologic Medical 07/24/16 MD Oncology [address] [place] [id number] Kenzie Duggan MD PCP - External Obstetrics/Gynecology 07/24/[address] Referring [address] [place] [address] Kenzie Duggan MD PCP - External Follow Obstetrics/Gynecology 07/24/[address] Up A [address] [place] [address]
--- OUTSIDE RECORDS SUMMARY | 2022-11-19 08:51 | XMS REPORT | Continuity of Care Document ---
:1955 Author Organization [facility] t Address [address] [place] [address] Care Team Providers Name Role Phone Vivian Ramos MD Primary Care Physician SYSTEM, PROVIDER NOT IN Attending Clinician Unavailable OLIMPIA WOLF Attending Clinician Unavailable Olimpia Wolf MD Attending Clinician [email or web address] Attending Clinician Unavailable [email or web address] Attending Clinician Unavailable Stacey Barragan Attending Clinician [phone] Lab, Ang - Db Attending Clinician Unavailable Doctor Unassigned, [place] Attending Clinician Unavailable Itz Patiño MD Attending Clinician Pob, [facility] Main Attending Clinician Unavailable 2, [facility] Attending Clinician Unavailable Corinna Wilder MD Attending Clinician CORINNA WILDER Attending Clinician Unavailable Maddy LEBRON, Cecy Vasques Attending Clinician Unavailable [email or web address] Admitting Clinician Unavailable [email or web address] Admitting Clinician Unavailable Payers Payer Name Policy Type Policy Number Effective Date Expiration Date Desi natarajan MEDICARE PART A [id number] 2014 \\T\\ B 00:00:00 [place]IC[place] B-[place]: [id number] 2014 [employer] 00:00:00 Problems Condition Condition Condition Status Onset Resolution Last Treating Co mments Source Name Details Category Date Date Treatment Clinician Date Dyslipidem Dyslipidem Disease Active U nivers ia ia 05-11 ity of 00:00: [place] 00 Medical Branch Primary Primary Disease Active Univers hypothyroi hypothyroi 05-11 it y of dism dism 00:00: [place] [facility] Constipati Constipati Disease Active M ethodi on on 11-11 00:00: Hospita 00 l Internal Internal Disease Active [facility] di hemorrhoid hemorrhoid 11-11 st s with s with 00:00: Hospita complicati complicati 00 l on on HPV - HPV - Disease Active 2015-09 Univers Human Human 208 ity of papillomav papillomav 00:00: [place] irus test irus test 00 positive positive [facility] Anxiety Anxiety Disease Active 2015-09 Univers 2-08 ity of 00:00: [place] 00 MD [facility] 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 "Urgent Desire for Stool" Chest pain Chest pain Disease Active Overview : Univers -24 Formattin ity of 00:00: g of this 00 note Medical might be Branch different from the original. 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 Diabetes Diabetes Problem Active Privi a mellitus Mellitus 05-28 Medica l 00:00: 00 Allergies, Adverse Reactions, Alerts Allergy Allergy Status Severity Reaction(s) Onset Inactive Treating Comm ents Source Name Type Date Date Clinician PROMETHA DRUG Active Other-Cmnt 2017-09 Univ ers ZINE HCL INGREDI 0- ity of 00:00: [place] 00 Medical Branch Prometha Propensi Active Other - See 2017-09 Patient Univers zine Hcl ty to comments 0-24 states it ity of adverse 00:00: makes her [place] reaction 00 " Jumpy " Medic al s Branch ETODOLAC DRUG Active EP Effects Univ ers INGREDI 8 ity of 00:00: [place] 00 Medical Branch Etodolac Propensi Active Extra Univer s ty to pyramidal 8 ity of adverse effects 00:00: [place] reaction 00 Medical s Branch Etodolac Propensi Active 2015-09 Univer s ty to 2-07 ity of adverse 00:00: [place] reaction 00 MD [facility] Prometha Propensi Active 2015-09 Univer s zine ty to 2-07 ity of adverse 00:00: [place] reaction 00 MD [facility] Prometha Propensi Active 2015-09 Method i zine ty to 09-22 st adverse 00:00: Hospita reaction 00 l s to drug Phenerga Allergy Active Privia n to Medical substanc e Social History Social Habit Start Date Stop Date Quantity Comments Source History of tobacco Cigarette Smoker University of use [facility] Exposure to 2022-11-07 2022-11-17 Not sure [facility] SARS-CoV-2 (event) 00:00:00 09:08:00 [facility] Tobacco use and 2022-11-17 2022-11-17 Smokeless Universit y of exposure 00:00:00 00:00:00 tobacco non-user [facility] d[facility] [place] Alcohol intake 2017-02-25 2017-02-25 Current drinker Unive rsity of 00:00:00 00:00:00 of alcohol [facility] Alcohol Comment 2016-08-26 2016-08-26 wine cooler 2-3 Univ ersity of 00:00:00 00:00:00 once a month [facility] Cigarettes smoked 2016-08-26 2016-08-26 Univers ity of current (pack per 00:00:00 00:00:00 [place] James Ibarra ) - Reported [facility] Cigarette 2016-08-26 2016-08-26 University of pack-years 00:00:00 00:00:00 [facility] Sex [birth year] At [birth year] Yarsani 00:00:00 00:00:00 Hospital Smoking Status Start Date Stop Date Source Never Smoker Priv[facility] Medical Ex-smoker 2022-11-17 00:00:00 2022-11-17 00:00:00 Universi ty of [facility] Medications Ordered Filled Start Stop Current Ordering Indication Dosage Frequency Signature Comments Components Source Medication Medication Date Date Medication? Clinician (SIG) Name Name icosapent Yes [id number] 2g Take 2 U nivers ethyL 2-28 capsules ity of (VASCEPA) 1 00:00: by mouth [place] gram 00 in the Medical capsule morning Branch and 2 capsules in the evening. levothyroxi Yes [id number] Take one Univers ne 125 mcg 2-28 tablet on ity of tablet 00:00: Wednesday 00 thru Medical Wednesday Branch lisinopriL 0 Yes [id number] 5mg Take 1 U nivers 5 mg tablet 2-28 tablet by ity of 00:00: mouth [place] 00 every Medical morning. Branch metformin 0 Yes [id number] 500mg Take 1 Univers ER 500 mg 2-28 tablet by ity o f 24 hr 00:00: mouth in [place] tablet 00 the Medical morning Branch and 1 tablet in the evening. Take with meals. dulaglutide 2022-0 Yes [id number] 4.5mg inject 1 Univers (TRULICITY) 2-28 Pen under ity of 4.5 mg/0.5 00:00: the skin [place] mL PnIj 00 weekly. Medical Branch atorvastati Yes [id number] 80mg Take 1 Univers n 80 mg 2-28 tablet by ity of tablet 00:00: mouth at [place] 00 bedtime. Medical Branch dapaglifloz 2022- Yes [id number] 10mg Take 1 Univers in 2-28 tablet by ity of (FARXIGA) 00:00: mouth [place] 10 mg 00 every Medical tablet morning. Branch icosapent Yes [id number] 2g Take 2 U nivers ethyL 2-28 capsules ity of (VASCEPA) 1 00:00: by mouth [place] gram 00 in the Medical capsule morning Branch and 2 capsules in the evening. levothyroxi Yes [id number] Take one Univers ne 125 mcg 2-28 tablet on ity of tablet 00:00: Wednesday [place] 00 thru Medical Wednesday Branch lisinopriL 2022-0 Yes [id number] 5mg Take 1 U nivers 5 mg tablet 2-28 tablet by ity of 00:00: mouth [place] 00 every Medical morning. Branch metformin 2022-0 Yes [id number] 500mg Take 1 Univers ER 500 mg 2-28 tablet by ity o f 24 hr 00:00: mouth in [place] tablet 00 the Medical morning Branch and 1 tablet in the evening. Take with meals. dulaglutide 2022-0 Yes [id number] 4.5mg inject 1 Univers (TRULICITY) 2-28 Pen under ity of 4.5 mg/0.5 00:00: the skin [place] mL PnIj 00 weekly. Medical Branch atorvastati 2022-0 Yes [id number] 80mg Take 1 Univers n 80 mg 2-28 tablet by ity of tablet 00:00: mouth at [place] 00 bedtime. Medical Branch dapaglifloz Yes [id number] 10mg Take 1 Univers in 2-28 tablet by ity of (FARXIGA) 00:00: mouth [place] 10 mg 00 every Medical tablet morning. Branch dulaglutide Yes [id number] 4.5mg inject 1 Univers (TRULICITY) 2-10 Pen under ity of 4.5 mg/0.5 00:00: the skin [place] mL PnIj 00 weekly. Medical Branch dulaglutide 2022- No [id number] 4.5mg inject 1 Univers (TRULICITY) -06 21- Pen under it y of 4.5 mg/0.5 00:00: 00:00 [place] mL PnIj 00 :00 weekly. Medical Branch dulaglutide 2022- No [id number] 4.5mg inject 1 Univers (TRULICITY) 10-30- Pen under it y of 4.5 mg/0.5 00:00: 00:00 the skin [place] mL PnIj 00 :00 weekly. Medical Branch ATORVASTATI Yes [id number] TAKE 1 Univers N 80 mg 1-25 TABLET BY ity of tablet 00:00: MOUTH [place] 00 EVERYDAY Medical AT BEDTIME Branch ATORVASTATI Yes [id number] TAKE 1 Univers N 80 mg 1-25 TABLET BY ity of tablet 00:00: MOUTH [place] 00 EVERYDAY Medical AT BEDTIME Branch ATORVASTATI 2022-0 2022- No [id number] TAKE 1 Univers N 80 mg 1-25 -28 TABLET BY ity of tablet 00:00: 00:00 MOUTH [place] 00 :00 EVERYDAY Medical AT BEDTIME Branch ATORVASTATI 2022-0 2022- No [id number] TAKE 1 Univers N 80 mg 1-25 -28 TABLET BY ity of tablet 00:00: 00:00 MOUTH [place] 00 :00 EVERYDAY Medical AT BEDTIME Branch metformin Yes [id number] 500mg TAKE 1 Univers ER 500 mg 1-14 TABLET BY ity o f 24 hr 00:00: MOUTH IN [place] tablet 00 THE Medical MORNING Branch AND 1 TABLET IN THE EVENING. TAKE WITH MEALS. metformin 2022-0 Yes [id number] 500mg TAKE 1 Univers ER 500 mg 1-14 TABLET BY ity o f 24 hr 00:00: MOUTH IN [place] tablet 00 THE [facility] Branch AND 1 TABLET IN THE EVENING. TAKE WITH MEALS. metformin 2022-0 Yes [id number] 500mg TAKE 1 Univers ER 500 mg 1-14 TABLET BY ity o f 24 hr 00:00: MOUTH IN [place] tablet 00 THE [facility] Branch AND 1 TABLET IN THE EVENING. TAKE WITH MEALS. metformin 2022-0 Yes [id number] 500mg TAKE 1 Univers ER 500 mg 1-14 TABLET BY ity o f 24 hr 00:00: MOUTH IN [place] tablet 00 THE [facility] AND 1 TABLET IN THE EVENING. TAKE WITH MEALS. metformin 2022-0 Yes [id number] 500mg TAKE 1 Univers ER 500 mg 1-14 TABLET BY ity o f 24 hr 00:00: MOUTH IN [place] tablet 00 THE [facility] AND 1 TABLET IN THE EVENING. TAKE WITH MEALS. metformin 2022-0 2022- No [id number] 500mg TAKE 1 Univers ER 500 mg 1-14 -28 TABLET BY ity of 24 hr 00:00: 00:00 MOUTH IN [place] tablet 00 :00 THE [facility] AND 1 TABLET IN THE EVENING. TAKE WITH MEALS. metformin 2022-0 2022- No [id number] 500mg TAKE 1 Univers ER 500 mg 1-14 -28 TABLET BY ity of 24 hr 00:00: 00:00 MOUTH IN [place] tablet 00 :00 THE [facility] AND 1 TABLET IN THE EVENING. TAKE WITH MEALS. [facility] 2021-09 Yes [id number] TAKE 1 Univers mg tablet 2-02 TABLET BY ity o f 00:00: MOUTH [place] 00 EVERY DAY Medical IN [facility] 2021-09 Yes [id number] TAKE 1 Univers mg tablet 2-02 TABLET BY ity o f 00:00: MOUTH [place] 00 EVERY DAY Medical IN [facility] 2021-09 Yes [id number] TAKE 1 Univers mg tablet 2-02 TABLET BY ity o f 00:00: MOUTH [place] 00 EVERY DAY Medical IN [facility] 2021-09 Yes [id number] TAKE 1 Univers mg tablet 2-02 TABLET BY ity o f 00:00: MOUTH [place] 00 EVERY DAY Medical IN THE [facility] 2021-09 Yes [id number] TAKE 1 Univers mg tablet 2-02 TABLET BY ity o f 00:00: MOUTH [place] 00 EVERY DAY Medical IN THE [place] [address] 2021-09 Yes [id number] TAKE 1 Univers mg tablet 2-02 TABLET BY ity o f 00:00: MOUTH [place] 00 EVERY DAY Medical IN THE [place] [address] 2021-09 Yes [id number] TAKE 1 Univers mg tablet 2-02 TABLET BY ity o f 00:00: MOUTH [place] 00 EVERY DAY Medical IN THE [place] [address] 2021-09- No [id number] TAKE 1 Univers mg tablet 2-10 22- TABLET BY ity of 00:00: 00:00 MOUTH [place] 00 :00 EVERY DAY Medical IN THE [place] [address] 2021-09- No [id number] TAKE 1 Univers mg tablet 2-10 22- TABLET BY ity of 00:00: 00:00 MOUTH [place] 00 :00 EVERY DAY Medical IN THE [facility] LISINOPRIL 2021-09 Yes [id number] TAKE 1 U nivers 5 mg tablet 0-03 TABLET BY ity of 00:00: MOUTH [place] 00 EVERY DAY Medical IN THE [facility] ATORVASTATI 2021-09 Yes [id number] TAKE 1 Univers N 80 mg 0-03 TABLET BY ity of tablet 00:00: MOUTH [place] 00 EVERYDAY Medical AT BEDTIME [place] LISINOPRIL 2021-09 Yes [id number] TAKE 1 U nivers 5 mg tablet 0-03 TABLET BY ity of 00:00: MOUTH [place] 00 EVERY DAY Medical IN THE [facility] ATORVASTATI 2021-09 Yes [id number] TAKE 1 Univers N 80 mg 0-03 TABLET BY ity of tablet 00:00: MOUTH [place] 00 EVERYDAY Medical AT BEDTIME [place] LISINOPRIL 2021-09 Yes [id number] TAKE 1 U nivers 5 mg tablet 0-03 TABLET BY ity of 00:00: MOUTH [place] 00 EVERY DAY Medical IN THE [facility] ATORVASTATI 2021-09 Yes [id number] TAKE 1 Univers N 80 mg 0-03 TABLET BY ity of tablet 00:00: MOUTH [place] 00 EVERYDAY Medical AT BEDTIME [place] LISINOPRIL 2021-09 Yes [id number] TAKE 1 U nivers 5 mg tablet 0-03 TABLET BY ity of 00:00: MOUTH [place] 00 EVERY DAY Medical IN THE [facility] ATORVASTATI 2021-09 Yes [id number] TAKE 1 Univers N 80 mg 0-03 TABLET BY ity of tablet 00:00: MOUTH [place] 00 EVERYDAY Medical AT BEDTIME [place] LISINOPRIL 2021-09 Yes [id number] TAKE 1 U nivers 5 mg tablet 0-03 TABLET BY ity of 00:00: MOUTH [place] 00 EVERY DAY Medical IN THE [facility] ATORVASTATI 2021-09 Yes [id number] TAKE 1 Univers N 80 mg 0-03 TABLET BY ity of tablet 00:00: MOUTH [place] 00 EVERYDAY Medical AT BEDTIME [place] LISINOPRIL 2021-09 Yes [id number] TAKE 1 U nivers 5 mg tablet 0-03 TABLET BY ity of 00:00: MOUTH [place] 00 EVERY DAY Medical IN THE [facility] ATORVASTATI 2021-09 Yes [id number] TAKE 1 Univers N 80 mg 0-03 TABLET BY ity of tablet 00:00: MOUTH [place] 00 [facility]-09 Yes [id number] TAKE 1 U nivers 5 mg tablet 0-03 TABLET BY ity of 00:00: MOUTH [place] 00 EVERY DAY Medical IN THE [facility] LISINOPRIL 2021-09 Yes [id number] TAKE 1 U nivers 5 mg tablet 0-03 TABLET BY ity of 00:00: MOUTH [place] 00 EVERY DAY Medical IN THE [facility] LISINOPRIL 2021-09- No [id number] TAKE 1 Univers 5 mg tablet 0-03 02-28 TABLET BY it y of 00:00: 00:00 MOUTH [place] 00 :00 EVERY DAY Medical IN THE [facility] LISINOPRIL 2021-09- No [id number] TAKE 1 Univers 5 mg tablet 0-03 02-28 TABLET BY it y of 00:00: 00:00 MOUTH [place] 00 :00 EVERY DAY Medical IN THE [facility] ATORVASTATI 2021-09- No [id number] TAKE 1 Univers N 80 mg 0-03 01-25 TABLET BY ity of tablet 00:00: 00:00 MOUTH [place] 00 :00 EVERYDAY Medical AT BEDTIME [place] LORazepam 2021-2021- No 2mg Take 2 mg Un radha 0.5 mg 8-30 08-30 by mouth. ity of tablet 10:23: 00:00 [place] 31 :00 Medical Branch LORazepam 2021-0 2021- No 2mg Take 2 mg Un radha 0.5 mg 8-30 08-30 by mouth. ity of tablet 10:23: 00:00 [place] 31 :00 Medical Branch dapaglifloz 2021-0 Yes [id number] 10mg Take 1 Univers in 8-30 tablet by ity of (FARXIGA) 00:00: mouth in [place] 10 mg 00 the Medical tablet morning. Branch dulaglutide 2021-0 Yes [id number] 4.5mg inject 1 Univers (TRULICITY) 8-30 Pen under ity of 4.5 mg/0.5 00:00: the skin [place] mL PnIj 00 weekly. Medical Branch icosapent 0 Yes [id number] 2g Take 2 U nivers ethyL 8-30 capsules ity of (VASCEPA) 1 00:00: by mouth [place] gram 00 in the Medical capsule morning Branch and 2 capsules in the evening. levothyroxi 2021-0 Yes [id number] Take one Univers ne 125 mcg 8-30 tablet on ity of tablet 00:00: Wednesday [place] 00 thru Medical Wednesday Branch metformin 2021-0 Yes [id number] 500mg Take 1 Univers ER 500 mg 8-30 tablet by ity o f 24 hr 00:00: mouth in [place] tablet 00 the Medical morning Branch and 1 tablet in the evening. Take with meals. dapaglifloz 2021-0 Yes [id number] 10mg Take 1 Univers in 8-30 tablet by ity of (FARXIGA) 00:00: mouth in [place] 10 mg 00 the Medical tablet morning. Branch dulaglutide 0 Yes [id number] 4.5mg inject 1 Univers (TRULICITY) 8-30 Pen under ity of 4.5 mg/0.5 00:00: the skin [place] mL PnIj 00 weekly. Medical Branch icosapent 2021-0 Yes [id number] 2g Take 2 U nivers ethyL 8-30 capsules ity of (VASCEPA) 1 00:00: by mouth [place] gram 00 in the Medical capsule morning Branch and 2 capsules in the evening. levothyroxi 2021-0 Yes [id number] Take one Univers ne 125 mcg 8-30 tablet on ity of tablet 00:00: Wednesday thru Wednesday Branch metformin 2-0 Yes [id number] 500mg Take 1 Univers ER 500 mg 8-30 tablet by ity o f 24 hr 00:00: mouth in [place] tablet 00 the Medical morning Branch and 1 tablet in the evening. Take with meals. dapaglifloz 2022-0 Yes [id number] 10mg Take 1 Univers in 8-30 tablet by ity of (FARXIGA) 00:00: mouth in [place] 10 mg 00 the Medical tablet morning. Branch dulaglutide 2021-0 Yes [id number] 4.5mg inject 1 Univers (TRULICITY) 8-30 Pen under ity of 4.5 mg/0.5 00:00: the skin [place] mL PnIj 00 weekly. Medical Branch icosapent 2021-0 Yes [id number] 2g Take 2 U nivers ethyL 8-30 capsules ity of (VASCEPA) 1 00:00: by mouth [place] gram 00 in the Medical capsule morning Branch and 2 capsules in the evening. levothyroxi 2021-0 Yes [id number] Take one Univers ne 125 mcg 8-30 tablet on ity of tablet 00:00: Wednesday thru Wednesday Branch metformin 2-0 Yes [id number] 500mg Take 1 Univers ER 500 mg 8-30 tablet by ity o f 24 hr 00:00: mouth in [place] tablet 00 the Medical morning Branch and 1 tablet in the evening. Take with meals. dapaglifloz 2-0 Yes [id number] 10mg Take 1 Univers in 8-30 tablet by ity of (FARXIGA) 00:00: mouth in [place] 10 mg 00 the Medical tablet morning. Branch dulaglutide 2021-0 Yes [id number] 4.5mg inject 1 Univers (TRULICITY) 8-30 Pen under ity of 4.5 mg/0.5 00:00: the skin [place] mL PnIj 00 weekly. Medical Branch icosapent 2021-0 Yes [id number] 2g Take 2 U nivers ethyL 8-30 capsules ity of (VASCEPA) 1 00:00: by mouth [place] gram 00 in the Medical capsule morning Branch and 2 capsules in the evening. levothyroxi 2021-0 Yes [id number] Take one Univers ne 125 mcg 8-30 tablet on ity of tablet 00:00: Wednesday thru [facility] Wednesday Branch metformin 2-0 Yes [id number] 500mg Take 1 Univers ER 500 mg 8-30 tablet by ity o f 24 hr 00:00: mouth in [place] tablet 00 the Medical morning Branch and 1 tablet in the evening. Take with meals. dulaglutide 2021-0 Yes [id number] 4.5mg inject 1 Univers (TRULICITY) 8-30 Pen under ity of 4.5 mg/0.5 00:00: the skin [place] mL PnIj 00 weekly. [facility] Branch icosapent 2021-0 Yes [id number] 2g Take 2 U nivers ethyL 8-30 capsules ity of (VASCEPA) 1 00:00: by mouth [place] gram 00 in the Medical capsule morning Branch and 2 capsules in the evening. levothyroxi 2021-0 Yes [id number] Take one Univers ne 125 mcg 8-30 tablet on ity of tablet 00:00: Wednesday thru [facility] Wednesday Branch metformin 2021-0 Yes [id number] 500mg Take 1 Univers ER 500 mg 8-30 tablet by ity o f 24 hr 00:00: mouth in [place] tablet 00 the Medical morning Branch and 1 tablet in the evening. Take with meals. dulaglutide 2021-0 Yes [id number] 4.5mg inject 1 Univers (TRULICITY) 8-30 Pen under ity of 4.5 mg/0.5 00:00: the skin [place] mL PnIj 00 weekly. [facility] Branch icosapent 2021-0 Yes [id number] 2g Take 2 U nivers ethyL 8-30 capsules ity of (VASCEPA) 1 00:00: by mouth [place] gram 00 in the Medical capsule morning Branch and 2 capsules in the evening. levothyroxi 2021-0 Yes [id number] Take one Univers ne 125 mcg 8-30 tablet on ity of tablet 00:00: Wednesday thru [facility] Wednesday Branch metformin 2021-0 Yes [id number] 500mg Take 1 Univers ER 500 mg 8-30 tablet by ity o f 24 hr 00:00: mouth in [place] tablet 00 the Medical morning Branch and 1 tablet in the evening. Take with meals. dulaglutide 2021-0 Yes [id number] 4.5mg inject 1 Univers (TRULICITY) 8-30 Pen under ity of 4.5 mg/0.5 00:00: the skin [place] mL PnIj 00 weekly. Medical Branch icosapent 0 Yes [id number] 2g Take 2 U nivers ethyL 8-30 capsules ity of (VASCEPA) 1 00:00: by mouth [place] gram 00 in the Medical capsule morning Branch and 2 capsules in the evening. levothyroxi 2021-0 Yes [id number] Take one Univers ne 125 mcg 8-30 tablet on ity of tablet 00:00: Wednesday thru Wednesday Branch dulaglutide Yes [id number] 4.5mg inject 1 Univers (TRULICITY) 8-30 Pen under ity of 4.5 mg/0.5 00:00: the skin [place] mL PnIj 00 weekly. Medical Branch icosapent Yes [id number] 2g Take 2 U nivers ethyL 8-30 capsules ity of (VASCEPA) 1 00:00: by mouth [place] gram 00 in the Medical capsule morning Branch and 2 capsules in the evening. levothyroxi 2021-0 Yes [id number] Take one Univers ne 125 mcg 8-30 tablet on ity of tablet 00:00: Wednesday thru Wednesday Branch dulaglutide 2021-0 Yes [id number] 4.5mg inject 1 Univers (TRULICITY) 8-30 Pen under ity of 4.5 mg/0.5 00:00: the skin [place] mL PnIj 00 weekly. Medical Branch icosapent 0 Yes [id number] 2g Take 2 U nivers ethyL 8-30 capsules ity of (VASCEPA) 1 00:00: by mouth [place] gram 00 in the Medical capsule morning Branch and 2 capsules in the evening. levothyroxi 2021-0 Yes [id number] Take one Univers ne 125 mcg 8-30 tablet on ity of tablet 00:00: Wednesday thru Wednesday Branch dulaglutide 2021-0 Yes [id number] 4.5mg inject 1 Univers (TRULICITY) 8-30 Pen under ity of 4.5 mg/0.5 00:00: the skin [place] [facility] [id number] 2g Take 2 U nivers ethyL 8-30 capsules ity of (VASCEPA) 1 00:00: by mouth [place] gram 00 in the Medical capsule morning Branch and 2 capsules in the evening. levothyroxi Yes [id number] Take one Univers ne 125 mcg 8-30 tablet on ity of tablet 00:00: Wednesday thru [facility] Wednesday Branch icosapent Yes [id number] 2g Take 2 U nivers ethyL 8-30 capsules ity of (VASCEPA) 1 00:00: by mouth [place] gram 00 in the Medical capsule morning Branch and 2 capsules in the evening. levothyroxi Yes [id number] Take one Univers ne 125 mcg 8-30 tablet on ity of tablet 00:00: Wednesday thru [facility] Wednesday Branch icosapent 2022- No [id number] 2g Take 2 Univers ethyL 8-30 02-28 capsules ity of (VASCEPA) 1 00:00: 00:00 by mouth [place] gram 00 :00 in the Medical capsule morning Branch and 2 capsules in the evening. levothyroxi 2022- No [id number] Take one Univers ne 125 mcg 8-30 02-28 tablet on ity of tablet 00:00: 00:00 Wednesday 00 :00 thru [facility] Wednesday [place] icosapent 2022- No [id number] 2g Take 2 Univers ethyL 8-30 02-28 capsules ity of (VASCEPA) 1 00:00: 00:00 by mouth [place] gram 00 :00 in the Medical capsule morning Branch and 2 capsules in the evening. levothyroxi 2022- No [id number] Take one Univers ne 125 mcg 8-30 02-28 tablet on ity of tablet 00:00: 00:00 [facility] dul[facility] 2022- No [id number] 4.5mg inject 1 Univers (TRULICITY) 8-30 02-10 Pen under it y of 4.5 mg/0.5 00:00: 00:00 the [place] mL PnIj 00 :00 weekly. Medical Branch metformin 2022- No [id number] 500mg Take 1 Univers ER 500 mg 05-19 tablet by ity of 24 hr 00:00: 00:00 mouth in [place] tablet 00 :00 the Medical morning Branch and 1 tablet in the evening. Take with meals. dapaglifloz 2-0 2- No [id number] 10mg Take 1 Univers in 05-19 tablet by ity of (FARXIGA) 00:00: 00:00 mouth in [place] 10 mg 00 :00 the Medical tablet morning. Branch lamoTRIgine 2-0 Yes Take by Uni vers 150 mg 8-09 mouth 2 ity of tablet 00:00: (two) [place] 00 times Medical daily. Branch lamoTRIgine 2-0 Yes Take by Uni vers 150 mg 8-09 mouth 2 ity of tablet 00:00: (two) [place] 00 times Medical daily. Branch lamoTRIgine 2-0 Yes Take by Uni vers 150 mg 8-09 mouth 2 ity of tablet 00:00: (two) [place] 00 times Medical daily. Branch lamoTRIgine 2-0 Yes Take by Uni vers 150 mg 8-09 mouth 2 ity of tablet 00:00: (two) [place] 00 times Medical daily. Branch lamoTRIgine 2-0 Yes Take by Uni vers 150 mg 8-09 mouth 2 ity of tablet 00:00: (two) [place] 00 times Medical daily. Branch lamoTRIgine 2-0 Yes Take by Uni vers 150 mg 8-09 mouth 2 ity of tablet 00:00: (two) [place] 00 times Medical daily. Branch lamoTRIgine 2-0 Yes Take by [facility] vers 150 mg 8-09 mouth 2 ity of tablet 00:00: (two) [place] 00 times Medical daily. Branch lamoTRIgine 2022-0 Yes Take by [facility] vers 150 mg 8-09 mouth 2 ity of tablet 00:00: (two) [place] 00 times Medical daily. Branch lamoTRIgine 2022-0 Yes Take by [facility] vers 150 mg 8-09 mouth 2 ity of tablet 00:00: (two) [place] 00 times Medical daily. Branch lamoTRIgine 2022-0 Yes Take by [facility] vers 150 mg 8-09 mouth 2 ity of tablet 00:00: (two) [place] 00 times Medical daily. Branch lamoTRIgine Yes Take by [facility] vers 150 mg 8-09 mouth 2 ity of tablet 00:00: (two) [place] 00 times Medical daily. Branch lamoTRIgine 0 Yes Take by [facility] vers 150 mg 8-09 mouth 2 ity of tablet 00:00: (two) [place] 00 times Medical daily. Branch lamoTRIgine Yes Take by [facility] vers 150 mg 8-09 mouth 2 ity of tablet 00:00: (two) [place] 00 times Medical daily. Branch METFORMIN 2021- No [id number] TAKE 1 [facility] ER 500 mg 6-11 08-30 TABLET BY ity of 24 hr 00:00: 00:00 MOUTH [place] tablet 00 :00 TWICE A Medical DAY WITH Branch MEALS METFORMIN 2021-2021- No [id number] TAKE 1 [facility] ER 500 mg 6-11 08-30 TABLET BY ity of 24 hr 00:00: 00:00 MOUTH [place] tablet 00 :00 TWICE A Medical DAY WITH Branch MEALS lisinopriL 0 Yes [id number] 5mg Take 1 U nivers 5 mg tablet 4-27 tablet by ity of 00:00: mouth [place] 00 every Medical morning. Branch atorvastati Yes [id number] 80mg Take 1 [facility] n 80 mg 4-27 tablet by ity of tablet 00:00: mouth at [place] 00 bedtime. Medical Branch lisinopriL Yes [id number] 5mg Take 1 U nivers 5 mg tablet 4-27 tablet by ity of 00:00: mouth [place] 00 every Medical morning. Branch atorvastati Yes [id number] 80mg Take 1 [facility] n 80 mg 4-27 tablet by ity of tablet 00:00: mouth at [place] 00 bedtime. Medical Branch lisinopriL Yes [id number] 5mg Take 1 U nivers 5 mg tablet 4-27 tablet by ity of 00:00: mouth [place] 00 every Medical morning. Branch atorvastati Yes [id number] 80mg Take 1 [facility] n 80 mg 4-27 tablet by ity of tablet 00:00: mouth at [place] 00 bedtime. Medical Branch lisinopriL 2021- No [id number] 5mg Take 1 [facility] 5 mg tablet 4-27 10-03 tablet by it y of 00:00: 00:00 mouth [place] 00 :00 every Medical morning. Branch atorvastati 2021- No [id number] 80mg Take 1 [facility] n 80 mg 01-14- tablet by ity of tablet 00:00: 00:00 mouth at [place] 00 :00 bedtime. Medical Branch dulaglutide 2021- No [id number] 4.5mg inject 1 [facility] (TRULICITY) 01-14-30 Pen under it y of 4.5 mg/0.5 00:00: 00:00 the [place] mL PnIj 00 :00 weekly. Medical Branch levothyroxi 2021- No [id number] Take one [facility] ne 125 mcg 01-14-30 tablet on ity of tablet 00:00: 00:00 Wednesday [place] 00 :00 thru Medical Wednesday Branch dapaglifloz 2021- No [id number] 10mg Take 1 [facility] in 01-14-30 tablet by ity of (FARXIGA) 00:00: 00:00 mouth [place] 10 mg 00 :00 daily. Medical tablet Branch icosapent 2021- No [id number] 2g Take 2 [facility] ethyL 01-14-30 capsules ity of (VASCEPA) 1 00:00: 00:00 by mouth 2 [place] gram 00 :00 (two) Medical capsule times Branch daily. dulaglutide No [id number] 4.5mg inject 1 [facility] (TRULICITY) 01-14-30 Pen under it y of 4.5 mg/0.5 00:00: 00:00 the skin [place] mL PnIj 00 :00 weekly. Medical Branch levothyroxi 2021- No [id number] Take one [facility] ne 125 mcg 01-14 08-30 tablet on ity of tablet 00:00: 00:00 Wednesday [place] 00 :00 thru Medical Wednesday Branch dapaglifloz 2021- No [id number] 10mg Take 1 [facility] in 01-14-30 tablet by ity of (FARXIGA) 00:00: 00:00 mouth [place] 10 mg 00 :00 daily. Medical tablet Branch icosapent 2021- No [id number] 2g Take 2 [facility] ethyL 4-27 08-30 capsules ity of (VASCEPA) 1 00:00: 00:00 by mouth 2 [place] gram 00 :00 (two) Medical capsule times Branch daily. lancets 2020-0 Yes USE TO Univers (ONE TOUCH 1-15 CHECK ity of DELICA) 33 00:00: BLOOD [place] gauge Misc 00 SUGAR 3 Medica l TIMES A Branch DAY. DX:E11.9 lancets 2020-0 Yes USE TO Univers (ONE TOUCH 1-15 CHECK ity of DELICA) 33 00:00: BLOOD [place] gauge Misc 00 SUGAR 3 Medica l TIMES A Branch DAY. DX:E11.9 lancets 2020-0 Yes USE TO Univers (ONE TOUCH 1-15 CHECK ity of DELICA) 33 00:00: BLOOD [place] gauge Misc 00 SUGAR 3 Medica l TIMES A Branch DAY. DX:E11.9 lancets 2020-0 Yes USE TO Univers (ONE TOUCH 1-15 CHECK ity of DELICA) 33 00:00: BLOOD [place] gauge Misc 00 SUGAR 3 Medica l TIMES A Branch DAY. DX:E11.9 lancets 2020-0 Yes USE TO Univers (ONE TOUCH 1-15 CHECK ity of DELICA) 33 00:00: BLOOD [place] gauge Misc 00 SUGAR 3 Medica l TIMES A Branch DAY. DX:E11.9 lancets 2020-0 Yes USE TO Univers (ONE TOUCH 1-15 CHECK ity of DELICA) 33 00:00: BLOOD [place] gauge Misc 00 SUGAR 3 Medica l TIMES A Branch DAY. DX:E11.9 lancets 2020-0 Yes USE TO Univers (ONE TOUCH 1-15 CHECK ity of DELICA) 33 00:00: BLOOD [place] gauge Misc 00 SUGAR 3 Medica l TIMES A Branch DAY. DX:E11.9 lancets 2020-0 Yes USE TO Univers (ONE TOUCH 1-15 CHECK ity of DELICA) 33 00:00: BLOOD [place] gauge Misc 00 SUGAR 3 Medica l TIMES A Branch DAY. DX:E11.9 lancets 2020-0 Yes USE TO Univers (ONE TOUCH 1-15 CHECK ity of DELICA) 33 00:00: BLOOD [place] gauge Misc 00 SUGAR 3 Medica l TIMES A Branch DAY. DX:E11.9 lancets 2020-0 Yes USE TO Univers (ONE TOUCH 1-15 CHECK ity of DELICA) 33 00:00: BLOOD [place] gauge Misc 00 SUGAR 3 Medica l TIMES A Branch DAY. DX:E11.9 lancets 0 Yes USE TO Univers (ONE TOUCH 1-15 CHECK ity of DELICA) 33 00:00: BLOOD [place] gauge Misc 00 SUGAR 3 Medica l TIMES A Branch DAY. DX:E11.9 lancets 2020-0 Yes USE TO Univers (ONE TOUCH 1-15 CHECK ity of DELICA) 33 00:00: BLOOD [place] gauge Misc 00 SUGAR 3 Medica l TIMES A Branch DAY. DX:E11.9 lancets 2020-0 Yes USE TO Univers (ONE TOUCH 1-15 CHECK ity of DELICA) 33 00:00: BLOOD [place] gauge Misc 00 SUGAR 3 Medica l TIMES A Branch DAY. DX:E11.9 HYDROXYZINE 2020-1 Yes 25mg Take 25 mg [facility] PAMOATE 0-20 by mouth 3 ity of ORAL 08:13: (three) [place] 17 times Medical daily. Branch busPIRone 2020-1 Yes 7.5mg Take 7.5 Uni vers 7.5 mg 0-20 mg by ity of tablet 08:13: mouth 3 [place] [address] (three) Medical times Branch daily. HYDROXYZINE 2020-1 Yes 25mg Take 25 mg Univers PAMOATE 0-20 by mouth 3 ity of ORAL 08:13: (three) [place] 17 times Medical daily. Branch busPIRone 2020-1 Yes 7.5mg Take 7.5 Uni vers 7.5 mg 0-20 mg by ity of tablet 08:13: mouth 3 [place] [address] (three) Medical times Branch daily. HYDROXYZINE 2020-1 Yes 25mg Take 25 mg [facility] PAMOATE 0-20 by mouth 3 ity of ORAL 08:13: (three) [place] 17 times Medical daily. Branch busPIRone 2020-1 Yes 7.5mg Take 7.5 Uni vers 7.5 mg 0-20 mg by ity of tablet 08:13: mouth 3 [place] 17 (three) Medical times Branch daily. HYDROXYZINE 2020-1 Yes 25mg Take 25 mg [facility] PAMOATE 0-20 by mouth 3 ity of ORAL 08:13: (three) [place] 17 times Medical daily. Branch busPIRone 2020-1 Yes 7.5mg Take 7.5 Uni vers 7.5 mg 0-20 mg by ity of tablet 08:13: mouth 3 [place] 17 (three) Medical times Branch daily. HYDROXYZINE 2020-1 Yes 25mg Take 25 mg [facility] PAMOATE 0-20 by mouth 3 ity of ORAL 08:13: (three) [place] 17 times Medical daily. Branch busPIRone 2020-1 Yes 7.5mg Take 7.5 Uni vers 7.5 mg 0-20 mg by ity of tablet 08:13: mouth 3 [place] 17 (three) Medical times Branch daily. HYDROXYZINE 2020-1 Yes 25mg Take 25 mg [facility] PAMOATE 0-20 by mouth 3 ity of ORAL 08:13: (three) [place] 17 times Medical daily. Branch busPIRone 2020-1 Yes 7.5mg Take 7.5 Uni vers 7.5 mg 0-20 mg by ity of tablet 08:13: mouth 3 [place] 17 (three) Medical times Branch daily. HYDROXYZINE 2020-1 Yes 25mg Take 25 mg [facility] PAMOATE 0-20 by mouth 3 ity of ORAL 08:13: (three) [place] 17 times Medical daily. Branch busPIRone 2020-1 Yes 7.5mg Take 7.5 Uni vers 7.5 mg 0-20 mg by ity of tablet 08:13: mouth 3 [place] 17 (three) Medical times Branch daily. HYDROXYZINE 2020-1 Yes 25mg Take 25 mg [facility] PAMOATE 0-20 by mouth 3 ity of ORAL 08:13: (three) [place] 17 times Medical daily. Branch busPIRone 2020-1 Yes 7.5mg Take 7.5 Uni vers 7.5 mg 0-20 mg by ity of tablet 08:13: mouth 3 [place] 17 (three) Medical times Branch daily. HYDROXYZINE 2020-1 Yes 25mg Take 25 mg [facility] PAMOATE 0-20 by mouth 3 ity of ORAL 08:13: (three) [place] 17 times Medical daily. Branch busPIRone 2020-1 Yes 7.5mg Take 7.5 Uni vers 7.5 mg 0-20 mg by ity of tablet 08:13: mouth 3 [place] 17 (three) Medical times Branch daily. HYDROXYZINE 2020-1 Yes 25mg Take 25 mg [facility] PAMOATE 0-20 by mouth 3 ity of ORAL 08:13: (three) [place] 17 times Medical daily. Branch busPIRone 2020-1 Yes 7.5mg Take 7.5 Uni vers 7.5 mg 0-20 mg by ity of tablet 08:13: mouth 3 [place] 17 (three) Medical times Branch daily. HYDROXYZINE 2020-1 Yes 25mg Take 25 mg [facility] PAMOATE 0-20 by mouth 3 ity of ORAL 08:13: (three) [place] 17 times Medical daily. Branch busPIRone 2020-1 Yes 7.5mg Take 7.5 Uni vers 7.5 mg 0-20 mg by ity of tablet 08:13: mouth 3 [place] 17 (three) Medical times Branch daily. HYDROXYZINE 2020-1 Yes 25mg Take 25 mg [facility] PAMOATE 0-20 by mouth 3 ity of ORAL 08:13: (three) [place] 17 times Medical daily. Branch busPIRone 2020-1 Yes 7.5mg Take 7.5 Uni vers 7.5 mg 0-20 mg by ity of tablet 08:13: mouth 3 [place] 17 (three) Medical times Branch daily. HYDROXYZINE 2020-1 Yes 25mg Take 25 mg [facility] PAMOATE 0-20 by mouth 3 ity of ORAL 08:13: (three) [place] 17 times Medical daily. Branch busPIRone 2020-1 Yes 7.5mg Take 7.5 Uni vers 7.5 mg 0-20 mg by ity of tablet 08:13: mouth 3 [place] 17 (three) Medical times Branch daily. blood sugar 2020-0 Yes [id number] Use to Univers diagnostic 7-06 check ity of (BLOOD 00:00: blood [place] GLUCOSE 00 sugar 2X Medical TEST) strip daily. Branch DX:E11.9 Blood-Gluco 2020-0 Yes [id number] Use as Univers se Meter 7-06 directed ity of (BLOOD 00:00: 2x daily [place] GLUCOSE 00 DX: E11.9 Medical MONITORING) Branch Kit blood sugar 2020-0 Yes [id number] Use to Univers diagnostic 7-06 check ity of (BLOOD 00:00: blood [place] GLUCOSE 00 sugar 2X Medical TEST) strip daily. Branch DX:E11.9 Blood-Gluco 2020-0 Yes [id number] Use as [facility] se Meter 7-06 directed ity of (BLOOD 00:00: 2x daily [place] GLUCOSE 00 DX: E11.9 Medical MONITORING) Branch Kit blood sugar 2020-0 Yes [id number] Use to Univers diagnostic 7-06 check ity of (BLOOD 00:00: blood [place] GLUCOSE 00 sugar 2X Medical TEST) strip daily. Branch DX:E11.9 Blood-Gluco 2020-0 Yes [id number] Use as [facility] se Meter 7-06 directed ity of (BLOOD 00:00: 2x daily [place] GLUCOSE 00 DX: E11.9 Medical MONITORING) Branch Kit blood sugar 2020-0 Yes [id number] Use to Univers diagnostic 706 check ity of (BLOOD 00:00: blood [place] GLUCOSE 00 sugar 2X Medical TEST) strip daily. Branch DX:E11.9 Blood-Gluco 2020-0 Yes [id number] Use as Univers se Meter 7-06 directed ity of (BLOOD 00:00: 2x daily [place] GLUCOSE 00 DX: E11.9 Medical MONITORING) Branch Kit blood sugar 2020-0 Yes [id number] Use to Univers diagnostic 03-25 check ity of (BLOOD 00:00: blood [place] GLUCOSE 00 sugar 2X Medical TEST) strip daily. Branch DX:E11.9 Blood-Gluco 2020-0 Yes [id number] Use as Univers se Meter - directed ity of (BLOOD 00:00: 2x daily [place] GLUCOSE 00 DX: E11.9 Medical MONITORING) Branch Kit blood sugar 2020-0 Yes [id number] Use to Univers diagnostic 03-25 check ity of (BLOOD 00:00: blood [place] GLUCOSE 00 sugar 2X Medical TEST) strip daily. Branch DX:E11.9 Blood-Gluco 2020-0 Yes [id number] Use as Univers se Meter 03-25 directed ity of (BLOOD 00:00: 2x daily [place] GLUCOSE 00 DX: E11.9 Medical MONITORING) Branch Kit blood sugar 2020-0 Yes [id number] Use to Univers diagnostic 03-25 check ity of (BLOOD 00:00: blood [place] GLUCOSE 00 sugar 2X Medical TEST) strip daily. Branch DX:E11.9 Blood-Gluco 2020-0 Yes [id number] Use as Univers se Meter 7-06 directed ity of (BLOOD 00:00: 2x daily [place] GLUCOSE 00 DX: E11.9 Medical MONITORING) Branch Kit blood sugar 2020-0 Yes [id number] Use to Univers diagnostic 06 check ity of (BLOOD 00:00: blood [place] GLUCOSE 00 sugar 2X Medical TEST) strip daily. Branch DX:E11.9 Blood-Gluco 2020-0 Yes [id number] Use as Univers se Meter 7-06 directed ity of (BLOOD 00:00: 2x daily [place] GLUCOSE 00 DX: E11.9 Medical MONITORING) Branch Kit blood sugar 2020-0 Yes [id number] Use to Univers diagnostic 03-25 check ity of (BLOOD 00:00: blood [place] GLUCOSE 00 sugar 2X Medical TEST) strip daily. Branch DX:E11.9 Blood-Gluco 2020-0 Yes [id number] Use as Univers se Meter 03-25 directed ity of (BLOOD 00:00: 2x daily [place] GLUCOSE 00 DX: E11.9 Medical MONITORING) Branch Kit blood sugar 0 Yes [id number] Use to Univers diagnostic 03-25 check ity of (BLOOD 00:00: blood [place] GLUCOSE 00 sugar 2X Medical TEST) strip daily. Branch DX:E11.9 Blood-Gluco 2020-0 Yes [id number] Use as Univers se Meter 03-25 directed ity of (BLOOD 00:00: 2x daily [place] GLUCOSE 00 DX: E11.9 Medical MONITORING) Branch Kit blood sugar 20200 Yes [id number] Use to Univers diagnostic 03-25 check ity of (BLOOD 00:00: blood [place] GLUCOSE 00 sugar 2X Medical TEST) strip daily. Branch DX:E11.9 Blood-Gluco 2020-0 Yes [id number] Use as Univers se Meter 03-25 directed ity of (BLOOD 00:00: 2x daily [place] GLUCOSE 00 DX: E11.9 Medical MONITORING) Branch Kit blood sugar 0 Yes [id number] Use to Univers diagnostic 03-25 check ity of (BLOOD 00:00: blood [place] GLUCOSE 00 sugar 2X Medical TEST) strip daily. Branch DX:E11.9 Blood-Gluco 2020-0 Yes [id number] Use as Univers se Meter 03-25 directed ity of (BLOOD 00:00: 2x daily [place] GLUCOSE 00 DX: E11.9 Medical MONITORING) Branch Kit blood sugar 0 Yes [id number] Use to Univers diagnostic 03-25 check ity of (BLOOD 00:00: blood [place] GLUCOSE 00 sugar 2X Medical TEST) strip daily. Branch DX:E11.9 Blood-Gluco 2020-0 Yes [id number] Use as Univers se Meter 03-25 directed ity of (BLOOD 00:00: 2x daily [place] GLUCOSE 00 DX: E11.9 Medical MONITORING) Branch Kit levothyroxi 2019-0 Yes 110mg Take 110 U nivers ne sodium 1-23 mg by ity of (LEVOTHYROX 14:39: mouth [place] INE ORAL) 45 daily. MD Marly figueroa [facility] levothyroxi Yes 110mg Take 110 U nivers ne sodium 1-23 mg by ity of (LEVOTHYROX 14:39: mouth [place] INE ORAL) 45 daily. MD Marly figueroa [facility] lithium Yes 1{tbl} Take 1 Univer s (LITHANE) 1-23 tablet by ity o f 300 mg 14:38: mouth [place] tablet 41 daily. MD Marly figueroa [facility] LORazepam Yes 1{tbl} Take 1 Univ ers (ATIVAN) 1 -23 tablet by ity of mg tablet 14:38: mouth [place] 41 daily. MD Marly figueroa [facility] metFORMIN Yes 1000mg Take 1,000 Univers (GLUCOPHAGE 1-23 mg by ity of -XR) 500 mg 14:38: mouth 2 [place] 24 hr 41 (two) tablet times a [place] day with n meals. [facility] [place] pioglitazon Yes 1{tbl} Take 1 Un radha e (ACTOS) 1-23 tablet by ity o f 30 mg 14:38: mouth [place] tablet 41 daily. MD Marly figueroa [facility] GLIPIZIDE Yes 2mg Take 2 mg Uni vers ORAL 23 by mouth ity of 14:38: daily. [place] 41 MD Marly figueroa [facility] dapaglifloz Yes 10mg Take 10 mg Univers in 23 by mouth ity of (FARXIGA) 14:38: twice [place] 10 mg tab 41 daily. MD Marly figueroa [facility] calcium Yes 1{tbl} Take 1 Univer s carbonate 1-23 tablet by ity o f (CALCIUM 14:38: mouth [place] 600) 600 mg 41 daily. (1,500 mg) Marly figueroa [facility] hydrOXYzine Yes 1{capsu Take 1 U nivers pamoate 1-23 le} capsule by ity of (VISTARIL) 14:38: mouth [place] 25 mg 41 daily. capsule Marly figueroa [facility] lisinopril Yes 1{tbl} Take 1 Uni vers (PRINIVIL,Z 1-23 tablet by ity of ESTRIL) 20 14:38: mouth [place] mg tablet 41 daily. MD Marly figueroa [facility] lithium Yes 1{tbl} Take 1 Univer s (LITHANE) 1-23 tablet by ity o f 300 mg 14:38: mouth [place] tablet 41 daily. MD Marly figueroa [facility] LORazepam Yes 1{tbl} Take 1 Univ ers (ATIVAN) 1 1-23 tablet by ity of mg tablet 14:38: mouth [place] 41 daily. MD Marly figueroa [facility] metFORMIN Yes 1000mg Take 1,000 Univers (GLUCOPHAGE 1-23 mg by ity of -XR) 500 mg 14:38: mouth 2 [place] 24 hr 41 (two) tablet times a [facility] [place] day with n meals. [facility] pioglitazon Yes 1{tbl} Take 1 Un radha e (ACTOS) 1-23 tablet by ity o f 30 mg 14:38: mouth [place] tablet 41 daily. MD Marly figueroa [facility] GLIPIZIDE Yes 2mg Take 2 mg Uni vers ORAL 23 by mouth ity of 14:38: daily. [place] 41 MD Marly figueroa [facility] dapaglifloz Yes 10mg Take 10 mg Univers in -23 by mouth ity of (FARXIGA) 14:38: twice [place] 10 mg tab 41 daily. MD Marly figueroa [facility] calcium Yes 1{tbl} Take 1 Univer s carbonate 1-23 tablet by ity o f (CALCIUM 14:38: mouth [place] 600) 600 mg 41 daily. (1,500 mg) Marly figueroa [facility] hydrOXYzine Yes 1{capsu Take 1 U nivers pamoate 1-23 le} capsule by ity of (VISTARIL) 14:38: mouth [place] 25 mg 41 daily. capsule Marly figueroa [facility] lisinopril Yes 1{tbl} Take 1 Uni vers (PRINIVIL,Z 1-23 tablet by ity of ESTRIL) 20 14:38: mouth [place] mg tablet 41 daily. MD Marly figueroa [facility] blade Yes [id number] Use as Unive rs lancet, 8-22 directed. ity of safety (BD 00:00: Twice [place] MICROTAINER 00 daily Medical LANCET) 1.5 Branch X 2 mm Misc blade 2018-0 Yes [id number] Use as Unive rs lancet, 8- directed. ity of safety (BD 00:00: Twice [place] MICROTAINER 00 daily Medical LANCET) 1.5 Branch X 2 mm Misc blade 2018-0 Yes [id number] Use as Unive rs lancet, 8- directed. ity of safety (BD 00:00: Twice [place] MICROTAINER 00 daily Medical LANCET) 1.5 Branch X 2 mm Misc blade 2018-0 Yes [id number] Use as Unive rs lancet, 8- directed. ity of safety (BD 00:00: Twice [place] MICROTAINER 00 daily Medical LANCET) 1.5 Branch X 2 mm Misc blade 2018-0 Yes [id number] Use as Unive rs lancet, 8 directed. ity of safety (BD 00:00: Twice [place] MICROTAINER 00 daily Medical LANCET) 1.5 Branch X 2 mm Misc blade 2018-0 Yes [id number] Use as Unive rs lancet, 8 directed. ity of safety (BD 00:00: Twice [place] MICROTAINER 00 daily Medical LANCET) 1.5 Branch X 2 mm Misc blade 2018-0 Yes [id number] Use as Unive rs lancet, 05-11 directed. ity of safety (BD 00:00: Twice [place] MICROTAINER 00 daily Medical LANCET) 1.5 Branch X 2 mm Misc blade 2018-0 Yes [id number] Use as Unive rs lancet, 8 directed. ity of safety (BD 00:00: Twice [place] MICROTAINER 00 daily Medical LANCET) 1.5 Branch X 2 mm Misc blade 2018-0 Yes [id number] Use as Unive rs lancet, 8- directed. ity of safety (BD 00:00: Twice [place] MICROTAINER 00 daily Medical LANCET) 1.5 Branch X 2 mm Misc blade 2018-0 Yes [id number] Use as Unive rs lancet, 8- directed. ity of safety (BD 00:00: Twice [place] MICROTAINER 00 daily Medical LANCET) 1.5 Branch X 2 mm Misc blade 2018-0 Yes [id number] Use as Unive rs lancet, 8-22 directed. ity of safety (BD 00:00: Twice [place] MICROTAINER 00 daily Medical LANCET) 1.5 Branch X 2 mm Misc blade 2018-0 Yes [id number] Use as Unive rs lancet, 05-11 directed. ity of safety (BD 00:00: Twice [place] MICROTAINER 00 daily Medical LANCET) 1.5 Branch X 2 mm Misc blade 2018 Yes [id number] Use as Unive rs lancet, 05-11 directed. ity of safety (BD 00:00: Twice [place] MICROTAINER 00 daily Medical LANCET) 1.5 Branch X 2 mm Misc estradiol Yes Mild INSERT 1 Univ ers (ESTRACE) 7-20 vaginal GRAM ity of 0.1 mg/g 00:00: dysplasia VAGINALLY [place] (0.01%) 00 3 TIMES MD vaginal PER WEEK [facility] cream (WEDNESDAY, wednesday [facility] WEDNESDAY) estradiol Yes INSERT 1 Univ ers 0.01 % (0.1 7-20 GRAM ity of mg/gram) 00:00: VAGINALLY [place] vaginal 00 3 TIMES Medical cream PER WEEK Branch (WEDNESDAY, WEDNESDAY AND WEDNESDAY) estradiol Yes INSERT 1 Univ ers 0.01 % (0.1 7-20 GRAM ity of mg/gram) 00:00: VAGINALLY [place] vaginal 00 3 TIMES Medical cream PER WEEK Branch (WEDNESDAY, WEDNESDAY AND WEDNESDAY) estradiol Yes INSERT 1 Univ ers 0.01 % (0.1 7-20 GRAM ity of mg/gram) 00:00: VAGINALLY [place] vaginal 00 3 TIMES Medical cream PER WEEK Branch (WEDNESDAY, WEDNESDAY AND WEDNESDAY) estradiol Yes INSERT 1 Univ ers 0.01 % (0.1 7-20 GRAM ity of mg/gram) 00:00: VAGINALLY [place] vaginal 00 3 TIMES Medical cream PER WEEK Branch (WEDNESDAY, WEDNESDAY AND WEDNESDAY) estradiol Yes INSERT 1 Univ ers 0.01 % (0.1 7-20 GRAM ity of mg/gram) 00:00: VAGINALLY [place] vaginal 00 3 TIMES Medical cream PER WEEK Branch (WEDNESDAY, WEDNESDAY AND WEDNESDAY) estradiol Yes INSERT 1 Univ ers 0.01 % (0.1 7-20 GRAM ity of mg/gram) 00:00: VAGINALLY [place] vaginal 00 3 TIMES Medical cream PER WEEK Branch (WEDNESDAY, WEDNESDAY AND WEDNESDAY) estradiol Yes INSERT 1 Univ ers 0.01 % (0.1 7-20 GRAM ity of mg/gram) 00:00: VAGINALLY [place] vaginal 00 3 TIMES Medical cream PER WEEK Branch (WEDNESDAY, WEDNESDAY AND WEDNESDAY) estradiol Yes INSERT 1 Univ ers 0.01 % (0.1 7-20 GRAM ity of mg/gram) 00:00: VAGINALLY [place] vaginal 00 3 TIMES Medical cream PER WEEK Branch (WEDNESDAY, WEDNESDAY AND WEDNESDAY) estradiol Yes INSERT 1 Univ ers 0.01 % (0.1 7-20 GRAM ity of mg/gram) 00:00: VAGINALLY [place] vaginal 00 3 TIMES Medical cream PER WEEK Branch (WEDNESDAY, WEDNESDAY AND WEDNESDAY) estradiol Yes INSERT 1 Univ ers 0.01 % (0.1 7-20 GRAM ity of mg/gram) 00:00: VAGINALLY [place] vaginal 00 3 TIMES Medical cream PER WEEK Branch (WEDNESDAY, WEDNESDAY AND WEDNESDAY) estradiol Yes INSERT 1 Univ ers 0.01 % (0.1 7-20 GRAM ity of mg/gram) 00:00: VAGINALLY [place] vaginal 00 3 TIMES Medical cream PER WEEK Branch (WEDNESDAY, WEDNESDAY AND WEDNESDAY) estradiol Yes INSERT 1 Univ ers 0.01 % (0.1 7-20 GRAM ity of mg/gram) 00:00: VAGINALLY [place] vaginal 00 3 TIMES Medical cream PER WEEK Branch (WEDNESDAY, WEDNESDAY AND WEDNESDAY) estradiol Yes INSERT 1 Univ ers 0.01 % (0.1 7-20 GRAM ity of mg/gram) 00:00: VAGINALLY [place] vaginal 00 3 TIMES Medical cream PER WEEK Branch (WEDNESDAY, WEDNESDAY AND WEDNESDAY) estradiol Yes Mild INSERT 1 Univ ers (ESTRACE) 7-20 vaginal GRAM ity of 0.1 mg/g 00:00: dysplasia VAGINALLY [place] (0.01%) 00 3 TIMES MD vaginal PER WEEK [facility] cream (WEDNESDAY, n WEDNESDAY [facility] WEDNESDAY) ARIPiprazol Yes 1{tbl} Take 1 Un radha e (ABILIFY) 5-25 tablet by ity of 15 MG 00:00: mouth [place] tablet 00 daily. MD Marly figueroa [facility] ARIPiprazol Yes 1{tbl} Take 1 Un radha e 15 mg 5-25 tablet by ity of tablet 00:00: mouth. [facility] ARIPiprazol Yes 1{tbl} Take 1 Un radha e 15 mg 5-25 tablet by ity of tablet 00:00: mouth. [facility] ARIPiprazol Yes 1{tbl} Take 1 Un radha e 15 mg 5-25 tablet by ity of tablet 00:00: mouth. [facility] ARIPiprazol Yes 1{tbl} Take 1 Un radha e 15 mg 5-25 tablet by ity of tablet 00:00: mouth. [facility] ARIPiprazol Yes 1{tbl} Take 1 Un radha e 15 mg 5-25 tablet by ity of tablet 00:00: mouth. [facility] ARIPiprazol Yes 1{tbl} Take 1 Un radha e 15 mg 5-25 tablet by ity of tablet 00:00: mouth. [facility] ARIPiprazol Yes 1{tbl} Take 1 Un radha e 15 mg 5-25 tablet by ity of tablet 00:00: mouth. [facility] ARIPiprazol Yes 1{tbl} Take 1 Un radha e 15 mg 5-25 tablet by ity of tablet 00:00: mouth. [place] [facility] ARIPiprazol Yes 1{tbl} Take 1 Un radha e 15 mg 5-25 tablet by ity of tablet 00:00: mouth. [facility] ARIPiprazol Yes 1{tbl} Take 1 Un radha e 15 mg 5-25 tablet by ity of tablet 00:00: mouth. [place] [facility] ARIPiprazol Yes 1{tbl} Take 1 Un radha e 15 mg 5-25 tablet by ity of tablet 00:00: mouth. [facility] ARIPiprazol Yes 1{tbl} Take 1 Un radha e 15 mg 5-25 tablet by ity of tablet 00:00: mouth. [facility] ARIPiprazol Yes 1{tbl} Take 1 Un radha e 15 mg 5-25 tablet by ity of tablet 00:00: mouth. [facility] ARIPiprazol Yes 1{tbl} Take 1 Un radha e (ABILIFY) 5-25 tablet by ity of 15 MG 00:00: mouth [place] tablet 00 daily. MD Marly figueroa [facility] menthol-zin Yes [id number] 1{each} Q.5D Apply 1 [facility]i [facility] oxide 5-[address] (CALMOSEPTI 00:00: topically [facility] [place]) 00 2 (two) l 0.44-20.6 % times a ointment day as needed (for skin irritation ). menthol-zin Yes [id number] 1{each} Q.5D Apply 1 Methodi c oxide 5-[address] (CALMOSEPTI 00:00: topically [facility] NE) 00 2 (two) l 0.44-20.6 % times a ointment day as needed (for skin irritation ). menthol-zin Yes [id number] 1{each} Q.5D Apply 1 Methodi c oxide 5-[address] (CALMOSEPTI 00:00: topically [facility]) 00 2 (two) l 0.44-20.6 % times a ointment day as needed (for skin irritation ). citalopram Yes 1{tbl} Take 1 Uni vers (CeleXA) 10 5-23 tablet by ity of mg tablet 00:00: mouth [place] 00 daily. MD Marly figueroa [facility] citalopram Yes 1{tbl} Take 1 Uni vers (CeleXA) 10 5-23 tablet by ity of mg tablet 00:00: mouth [place] 00 daily. MD Marly figueroa [facility] [id number] 2015-09 Yes 1{tbl} Take 1 Uni vers mg tab 2-07 tablet by ity of 00:00: mouth [place] 00 daily. MD Marly figueroa [facility] [id number] 2015-09 Yes 1{tbl} Take 1 Uni vers mg tab 2-07 tablet by ity of 00:00: mouth [place] 00 daily. MD Marly figueroa [facility] Yes 1{tbl} Take 1 Unive rs (AMBIEN) 10 2-06 tablet by ity of mg tablet 00:00: mouth [place] 00 daily. MD Marly figueroa [facility] 2015-09 Yes 1{tbl} Take 1 Unive rs (AMBIEN) 10 2-06 tablet by ity of mg tablet 00:00: mouth [place] 00 daily. MD Marly figueroa [facility] aripiprazol aripiprazol No aripiprazo [facility] e 10 mg e 10 mg le 10 mg Medic al tablet TAKE tablet TAKE tablet 1 TABLET BY 1 TABLET BY TAKE 1 MOUTH AT MOUTH AT TABLET BY BEDTIME BEDTIME MOUTH AT BEDTIME atorvastati atorvastati No atorvastat [facility] n 80 mg n 80 mg in 80 mg Medic al tablet TAKE tablet TAKE tablet 1 TABLET BY 1 TABLET BY TAKE 1 MOUTH MOUTH TABLET BY EVERYDAY AT EVERYDAY AT MOUTH BEDTIME BEDTIME EVERYDAY AT BEDTIME buspirone buspirone No buspirone [facility] 10 mg 10 mg 10 mg Medical tablet TAKE tablet TAKE tablet 1 TABLET BY 1 TABLET BY TAKE 1 MOUTH THREE MOUTH THREE TABLET BY TIMES A DAY TIMES A DAY MOUTH THREE TIMES A DAY Farxiga 10 Farxiga 10 No Farxiga 10 [facility] mg tablet mg tablet mg tablet Medical TAKE 1 TAKE 1 TAKE 1 TABLET BY TABLET BY TABLET BY MOUTH EVERY MOUTH EVERY MOUTH DAY IN THE DAY IN THE EVERY DAY MORNING MORNING IN THE MORNING hydroxychlo hydroxychlo No hydroxychl [facility] roquine 200 roquine 200 oroquine Medical mg tablet mg tablet 200 mg TAKE 1 TAKE 1 tablet TABLET BY TABLET BY TAKE 1 MOUTH TWICE MOUTH TWICE TABLET BY A DAY A DAY MOUTH TWICE A DAY lamotrigine lamotrigine No lamotrigin [facility] 100 mg 100 mg e 100 mg Medical tablet TAKE tablet TAKE tablet BY MOUTH 1 BY MOUTH 1 TAKE BY TABLET IN TABLET IN MOUTH 1 MORNING AND MORNING AND TABLET IN 1 AND /2 1 AND /2 MORNING TABLET AT TABLET AT AND 1 AND NIGHT NIGHT 1/2 TABLET AT NIGHT levothyroxi levothyroxi No levothyrox [facility] ne 125 mcg ne 125 mcg ine 125 Medical tablet TAKE tablet TAKE mcg tablet ONE TABLET ONE TABLET TAKE ONE ON WEDNESDAY ON WEDNESDAY TABLET ON THRU THRU Wednesday THRU WEDNESDAY lisinopril lisinopril No lisinopril [facility] 5 mg tablet 5 mg tablet 5 mg M edical TAKE 1 TAKE 1 tablet TABLET BY TABLET BY TAKE 1 MOUTH EVERY MOUTH EVERY TABLET BY DAY IN THE DAY IN THE MOUTH MORNING MORNING EVERY DAY IN THE MORNING meclizine meclizine No meclizine [facility] 25 mg 25 mg 25 mg Medical tablet TAKE tablet TAKE tablet BY MOUTH 2 BY MOUTH 2 TAKE BY TABLETS TABLETS MOUTH 2 EVERY 8 EVERY 8 TABLETS HOURS HOURS EVERY 8 NEEDED FOR NEEDED FOR HOURS DIZZINESS DIZZINESS NEEDED FOR OR NAUSEA OR NAUSEA DIZZINESS OR NAUSEA metformin metformin No metformin [facility] ER 500 mg ER 500 mg ER 500 mg Medical tablet,exte tablet,exte tablet,ext nded nded ended release 24 release 24 release 24 hr TAKE 1 hr TAKE 1 hr TAKE 1 TABLET BY TABLET BY TABLET BY MOUTH TWICE MOUTH TWICE MOUTH A DAY WITH A DAY WITH TWICE A MEALS MEALS DAY WITH MEALS mirtazapine mirtazapine No mirtazapin [facility] 15 mg 15 mg e 15 mg Medical tablet TAKE tablet TAKE tablet 1 TABLET BY 1 TABLET BY TAKE 1 MOUTH MOUTH TABLET BY EVERYDAY AT EVERYDAY AT MOUTH BEDTIME BEDTIME EVERYDAY AT BEDTIME mirtazapine mirtazapine No mirtazapin [facility] 7.5 mg 7.5 mg e 7.5 mg Medical tablet TAKE tablet TAKE tablet 1 TABLET BY 1 TABLET BY TAKE 1 MOUTH MOUTH TABLET BY EVERYDAY AT EVERYDAY AT MOUTH BEDTIME BEDTIME EVERYDAY AT BEDTIME Trulicity Trulicity No Trulicity [facility] 1.5 mg/0.5 1.5 mg/0.5 1.5 mg/0.5 Medical mL mL mL subcutaneou subcutaneou subcutaneo s pen s pen us pen injector injector injector INJECT 1.5 INJECT 1.5 INJECT 1.5 MG UNDER MG UNDER MG UNDER THE SKIN THE SKIN THE SKIN WEEKLY. WEEKLY. WEEKLY. Vascepa 1 Vascepa 1 No Vascepa 1 [facility] gram gram gram Medical capsule capsule capsule TAKE 2 TAKE 2 TAKE 2 CAPSULES BY CAPSULES BY CAPSULES MOUTH 2 MOUTH 2 BY MOUTH 2 TIMES TIMES TIMES DAILY. DAILY. DAILY. Immunizations Ordered Filled Immunization Date Status Comments [facility] e Immunization Name Name influenza, influenza, 2021-05-21 Completed [facility] unspecified unspecified 00:00:00 formulation formulation SARS-COV-2 COVID-19 2020-12-07 Completed Unive rsity of PFIZER VACCINE 00:00:00 [facility] SARS-COV-2 COVID-19 2020-12-07 Completed Unive rsity of PFIZER VACCINE 00:00:00 [facility] SARS-COV-2 COVID-19 2020-12-07 Completed Unive rsity of PFIZER VACCINE 00:00:00 [facility] SARS-COV-2 COVID-19 2020-12-07 Completed Unive rsity of PFIZER VACCINE 00:00:00 [facility] SARS-COV-2 COVID-19 2020-12-07 Completed Unive rsity of PFIZER VACCINE 00:00:00 [facility] SARS-COV-2 COVID-19 2020-12-07 Completed Unive rsity of PFIZER VACCINE 00:00:00 [facility] SARS-COV-2 COVID-19 2020-12-07 Completed Unive rsity of PFIZER VACCINE 00:00:00 [facility] SARS-COV-2 COVID-19 2020-12-07 Completed Unive rsity of PFIZER VACCINE 00:00:00 [facility] SARS-COV-2 COVID-19 2020-12-07 Completed Unive rsity of PFIZER VACCINE 00:00:00 [facility] SARS-COV-2 COVID-19 2020-12-07 Completed Unive rsity of PFIZER VACCINE 00:00:00 [facility] SARS-COV-2 COVID-19 2020-12-07 Completed Unive rsity of PFIZER VACCINE 00:00:00 [facility] SARS-COV-2 COVID-19 2020-12-07 Completed Unive rsity of PFIZER VACCINE 00:00:00 [facility] SARS-COV-2 COVID-19 2020-12-07 Completed Unive rsity of PFIZER VACCINE 00:00:00 [facility] COVID-19 COVID-19 2020-12-02 Completed [facility] (SARS-COV-2) (SARS-COV-2) 00:00:00 vaccine, vaccine, unspecified unspecified SARS-COV-2 COVID-19 2020-11-16 Completed Unive rsity of PFIZER VACCINE 00:00:00 [facility] SARS-COV-2 COVID-19 2020-11-16 Completed Unive rsity of PFIZER VACCINE 00:00:00 [facility] SARS-COV-2 COVID-19 2020-11-16 Completed Unive rsity of PFIZER VACCINE 00:00:00 [facility] SARS-COV-2 COVID-19 2020-11-16 Completed Unive rsity of PFIZER VACCINE 00:00:00 [facility] SARS-COV-2 COVID-19 2020-11-16 Completed Unive rsity of PFIZER VACCINE 00:00:00 [facility] SARS-COV-2 COVID-19 2020-11-16 Completed Unive rsity of PFIZER VACCINE 00:00:00 [facility] SARS-COV-2 COVID-19 2020-11-16 Completed Unive rsity of PFIZER VACCINE 00:00:00 [facility] SARS-COV-2 COVID-19 2020-11-16 Completed Unive rsity of PFIZER VACCINE 00:00:00 [facility] SARS-COV-2 COVID-19 2020-11-16 Completed Unive rsity of PFIZER VACCINE 00:00:00 [facility] SARS-COV-2 COVID-19 2020-11-16 Completed Unive rsity of PFIZER VACCINE 00:00:00 [facility] SARS-COV-2 COVID-19 2020-11-16 Completed Unive rsity of PFIZER VACCINE 00:00:00 [facility] SARS-COV-2 COVID-19 2020-11-16 Completed Unive rsity of PFIZER VACCINE 00:00:00 [facility] SARS-COV-2 COVID-19 2020-11-16 Completed Unive rsity of PFIZER VACCINE 00:00:00 [facility] COVID-19 COVID-19 2020-11-10 Completed [facility] (SARS-COV-2) (SARS-COV-2) 00:00:00 vaccine, vaccine, unspecified unspecified COVID-19 COVID-19 2020-10-21 Completed [facility] (SARS-COV-2) (SARS-COV-2) 00:00:00 vaccine, vaccine, unspecified unspecified influenza, influenza, 2020-06-20 Completed [facility] unspecified unspecified 00:00:00 formulation formulation Influenza Virus 2020-05-20 Completed Universit y of Vaccine Quad .5 mL 00:00:00 [facility] 6+ MO Branch Influenza Virus 2020-05-20 Completed Universit y of Vaccine Quad .5 mL 00:00:00 [facility] [place] [facility] 6+ MO Branch Influenza Virus 2020-05-20 Completed Universit y of Vaccine [place] .5 mL 00:00:00 [facility] [place] [facility] 6+ [place] Influenza Virus 2020-05-20 Completed Universit y of Vaccine Quad .5 mL 00:00:00 [facility] [place] [facility] 6+ [place] Influenza Virus 2020-05-20 Completed Universit y of Vaccine Quad .5 mL 00:00:00 [facility] [place] [facility] 6+ [place] Influenza Virus 2020-05-20 Completed Universit y of Vaccine Quad .5 mL 00:00:00 [facility] [place] [facility] 6+ MO Branch Influenza Virus 2020-05-20 Completed Universit y of Vaccine Quad .5 mL 00:00:00 [facility] [place] [facility] 6+ [place] Influenza Virus 2020-05-20 Completed Universit y of Vaccine Quad .5 mL 00:00:00 [facility] [place] [facility] 6+ [place] Influenza Virus 2020-05-20 Completed Universit y of Vaccine Quad .5 mL 00:00:00 [facility] [place] [facility] 6+ [place] Influenza Virus 2020-05-20 Completed Universit y of Vaccine Quad .5 mL 00:00:00 [facility] [place] [facility] 6+ MO Branch Influenza Virus 2020-05-20 Completed Universit y of Vaccine Quad .5 mL 00:00:00 [facility] [place] [facility] 6+ MO Branch Influenza Virus 2020-05-20 Completed Universit y of Vaccine Quad .5 mL 00:00:00 [facility] [place] [facility] 6+ MO Branch Influenza Virus 2020-05-20 Completed Universit y of Vaccine Quad .5 mL 00:00:00 [facility] [place] [facility] 6+ MO Branch Pneumococcal 2019-06-13 Completed University o f Polysaccharide, 00:00:00 [place] [facility] ical PPSV23 (PNEUMOVAX) Branch Pneumococcal 2019-06-13 Completed University o f Polysaccharide, 00:00:00 [place] [facility] ical PPSV23 (PNEUMOVAX) Branch Pneumococcal 2019-06-13 Completed University o f Polysaccharide, 00:00:00 [place] [facility] ical PPSV23 (PNEUMOVAX) Branch Pneumococcal 2019-06-13 Completed University o f Polysaccharide, 00:00:00 [place] [facility] ical PPSV23 (PNEUMOVAX) Branch Pneumococcal 2019-06-13 Completed University o f Polysaccharide, 00:00:00 [place] [facility] PPSV23 (PNEUMOVAX) Branch Pneumococcal 2019-06-13 Completed University o f Polysaccharide, 00:00:00 [place] [facility] PPSV23 (PNEUMOVAX) Branch Pneumococcal 2019-06-13 Completed University o f Polysaccharide, 00:00:00 [place] [facility] PPSV23 (PNEUMOVAX) Branch Pneumococcal 2019-06-13 Completed University o f Polysaccharide, 00:00:00 [place] [facility] PPSV23 (PNEUMOVAX) Branch Pneumococcal 2019-06-13 Completed University o f Polysaccharide, 00:00:00 [place] [facility] ical PPSV23 (PNEUMOVAX) Branch Pneumococcal 2019-06-13 Completed University o f Polysaccharide, 00:00:00 [place] [facility] ical PPSV23 (PNEUMOVAX) Branch Pneumococcal 2019-06-13 Completed University o f Polysaccharide, 00:00:00 [place] [facility] ical PPSV23 (PNEUMOVAX) Branch Pneumococcal 2019-06-13 Completed University o f Polysaccharide, 00:00:00 [place] [facility] ical PPSV23 (PNEUMOVAX) Branch Pneumococcal 2019-06-13 Completed University o f Polysaccharide, 00:00:00 [place] [facility] ical PPSV23 (PNEUMOVAX) Branch Influenza Virus 2019-06-09 Completed Universit y of Vaccine 00:00:00 [facility] Influenza Virus 2019-06-09 Completed Universit y of Vaccine 00:00:00 [facility] Influenza Virus 2019-06-09 Completed Universit y of Vaccine 00:00:00 [facility] Influenza Virus 2019-06-09 Completed Universit y of Vaccine 00:00:00 [facility] Influenza Virus 2019-06-09 Completed Universit y of Vaccine 00:00:00 [facility] Influenza Virus 2019-06-09 Completed Universit y of Vaccine 00:00:00 [facility] Influenza Virus 2019-06-09 Completed Universit y of Vaccine 00:00:00 [facility] Influenza Virus 2019-06-09 Completed Universit y of Vaccine 00:00:00 [facility] Influenza Virus 2019-06-09 Completed Universit y of Vaccine 00:00:00 [facility] Influenza Virus 2019-06-09 Completed Universit y of Vaccine 00:00:00 [facility] Influenza Virus 2019-06-09 Completed Universit y of Vaccine 00:00:00 [facility] Influenza Virus 2019-06-09 Completed Universit y of Vaccine 00:00:00 [facility] Influenza Virus 2019-06-09 Completed Universit y of Vaccine 00:00:00 [facility] Influenza Virus 2018-06-08 Completed Universit y of Vaccine 00:00:00 [facility] Influenza Virus 2018-06-08 Completed Universit y of Vaccine 00:00:00 [facility] Influenza Virus 2018-06-08 Completed Universit y of Vaccine 00:00:00 [facility] Influenza Virus 2018-06-08 Completed Universit y of Vaccine 00:00:00 [facility] Influenza Virus 2018-06-08 Completed Universit y of Vaccine 00:00:00 [facility] Influenza Virus 2018-06-08 Completed Universit y of Vaccine 00:00:00 [facility] Influenza Virus 2018-06-08 Completed Universit y of Vaccine 00:00:00 [facility] Influenza Virus 2018-06-08 Completed Universit y of Vaccine 00:00:00 [facility] Influenza Virus 2018-06-08 Completed Universit y of Vaccine 00:00:00 [facility] Influenza Virus 2018-06-08 Completed Universit y of Vaccine 00:00:00 [facility] Influenza Virus 2018-06-08 Completed Universit y of Vaccine 00:00:00 [facility] Influenza Virus 2018-06-08 Completed Universit y of Vaccine 00:00:00 [facility] Influenza Virus 2018-06-08 Completed Universit y of Vaccine 00:00:00 [facility] Vital Signs Vital Name Observation Time Observation Value Comments Source Systolic blood 2022-11-17 15:10:00 115 [facility] Diastolic blood 2022-11-17 15:10:00 67 [facility]Hg[facility] Body height 2022-11-17 15:10:00 152.4 cm [facility] Body weight 2022-11-17 15:10:00 62.869 kg [facility] BMI 2022-11-17 15:10:00 27.07 kg/m2 [facility] BP Diastolic 2022-05-28 00:00:00 78 mm[Hg] Yosi Ramirez edical Height 2022-05-28 00:00:00 60 [in_i] Yosi mckeon BMI (Body Mass 2022-05-28 00:00:00 27.7 kg/m2 [facility] Index) BP Systolic 2022-05-28 00:00:00 122 mm[Hg] Yosi mckeon Body Weight 2022-05-28 00:00:00 142 [lb_av] Yosi mckeon Systolic blood 2022-05-19 14:52:00 121 mm[facility]Hg[facility] Diastolic blood 2022-05-19 14:52:00 77 mm[Hg] [facility] Heart rate 2022-05-19 14:52:00 75 /min [facility] Body height 2022-05-19 14:52:00 152.4 cm [facility] Body weight 2022-05-19 14:52:00 64.864 kg [facility] BMI 2022-05-19 14:52:00 27.93 kg/m2 [facility] Oxygen saturation 2022-05-19 14:52:00 97 /min [facility] in Arterial blood [facility] anch by Pulse oximetry Procedures Procedure Date / Time Performing Clinician Source Performed POCT HEMOGLOBIN A1C TEST 2022-11-17 15:19:00 [facility] 2022-05-19 14:59:00 [facility] 2020-11-18 00:00:00 [facility] Cholecystectomy 1996-09-20 00:00:00 [facility] Hysterectomy (Ovaries 1993-09-20 00:00:00 [facility] Remain) Ankle Manipulation 1992-09-20 00:00:00 [facility] Operative Procedure on 1990-09-20 00:00:00 [facility] Knee Plan of Care Planned Activity Planned Date Details Comments Source Future Scheduled 2022-11-19 COVID-19 VACCINE (#1) [facility] Test 08:46:52 [code = COVID-19 VACCINE (#1)] Future Scheduled 2022-11-19 Screening for [facility] Test 08:46:52 malignant neoplasm of cervix (procedure) [code = 449530618] Future Scheduled 2022-11-19 BREAST CANCER [facility] Test 08:46:52 SCREENING [code = BREAST CANCER SCREENING] Future Scheduled 2022-11-19 COLONOSCOPY SCREENING [facility] Test 08:46:52 [code = COLONOSCOPY SCREENING] Future Scheduled 2022-11-19 SHINGLES VACCINES (1 Met [facility] Test 08:46:52 of 2) [code = SHINGLES VACCINES (1 of 2)] Future Scheduled 2022-11-19 INFLUENZA VACCINE Method [facility] Test 08:46:52 [code = INFLUENZA VACCINE] Future Scheduled 2022-11-19 65+ PNEUMOCOCCAL Methodi [facility] Test 08:46:52 VACCINE (1 - PCV) [code = 65+ PNEUMOCOCCAL VACCINE (1 - PCV)] Future Scheduled 2022-09-11 COVID-19 VACCINE (#1) [facility] Test 23:39:22 [code = COVID-19 VACCINE (#1)] Future Scheduled 2022-09-11 Screening for [facility] Test 23:39:22 malignant neoplasm of cervix (procedure) [code = 265593642] Future Scheduled 2022-09-11 BREAST CANCER [facility] Test 23:39:22 SCREENING [code = BREAST CANCER SCREENING] Future Scheduled 2022-09-11 COLONOSCOPY SCREENING [facility] Test 23:39:22 [code = COLONOSCOPY SCREENING] Future Scheduled 2022-09-11 SHINGLES VACCINES (1 Met [facility] Test 23:39:22 of 2) [code = SHINGLES VACCINES (1 of 2)] Future Scheduled 2022-09-11 INFLUENZA VACCINE [facility] Test 23:39:22 [code = INFLUENZA VACCINE] Future Scheduled 2022-09-11 65+ PNEUMOCOCCAL Methodi [facility] Test 23:39:22 VACCINE (1 - PCV) [code = 65+ PNEUMOCOCCAL VACCINE (1 - PCV)] Diagnostic Test 2022-05-28 [place] IgE Ab [facility] Pending 00:00:00 [Units/volume] in Serum [code = 6195-2] Future Scheduled 2022-03-25 COVID-19 Vaccination Uni [facility] Test 04:47:24 (#1) [code = COVID-19 [facility] Vaccination (#1)] Center Future Scheduled 2022-03-25 COVID-19 Vaccination Uni [facility] Test 04:47:24 (#1) [code = COVID-19 MD [facility] Vaccination (#1)] Center Future Scheduled 2021-07-23 COVID-19 VACCINE (1) Met [facility] Test 18:19:56 [code = COVID-19 VACCINE (1)] Future Scheduled 2021-07-23 Screening for [facility] Test 18:19:56 malignant neoplasm of cervix (procedure) [code = 505479819] Future Scheduled 2021-07-23 BREAST CANCER [facility] Test 18:19:56 SCREENING [code = BREAST CANCER SCREENING] Future Scheduled 2021-07-23 COLONOSCOPY SCREENING [facility] Test 18:19:56 [code = COLONOSCOPY SCREENING] Future Scheduled 2021-07-23 SHINGLES VACCINES Method [facility] Test 18:19:56 (#1) [code = SHINGLES VACCINES (#1)] Future Scheduled 2021-07-23 INFLUENZA VACCINE Method [facility] Test 18:19:56 [code = INFLUENZA VACCINE] Future Appointment 2023-05-28 Stacey Barragan, [address] [facility] 00:00:00 [place] [address] Encounters Start End Encounter Admission Attending Care Care Encounter Source Date/Time Date/Time Type Type Clinicians Facility Department ID 2021-07-17 Outpatient SYSTEM, [facility] [id number] 14:09:12 PROVIDER Scott o n 2023-05-18 2023-05-18 Outpatient [facility] [id number] Univers 11:30:00 11:30:00 [facility] 2022-11-17 2022-11-17 Outpatient R [facility] [id number] Univers 09:30:00 10:29:54 [facility] 2022-11-17 2022-11-17 Office Maryann [facility] [id number] Univers 09:30:00 10:29:54 Visit [facility] [id number] it y [facility] [id number] Grey as RAVI?BLEA [id number] Ga christiano QUARLES [address] MEDICAL OFFICE [facility] 2022-10-30 2022-10-30 Refill Wolf, [facility] [id number] Univers 00:00:00 00:00:00 [facility] HEALTH [id number] it y of [place] [id number] Grey as RAVI?BLEA [id number] [address] MEDICAL OFFICE [facility] 2022-10-28 2022-10-28 Outpatient [facility] [id number] Felipe 13:01:37 13:01:37 0208 F Kamron 2022-10-14 2022-10-14 Refill Wolf, [facility] [id number] Univers 00:00:00 00:00:00 [facility] [employer] HEALTH [id number] it y of [place] [id number] Grey as RAVI?BLEA [id number] [address] MEDICAL OFFICE [facility] 2022-10-07 2022-10-07 Refill Wolf, [facility] [id number] Univers 00:00:00 00:00:00 [facility] [employer] HEALTH [id number] it y of [place] [id number] Grey as RAVI?BLEA [id number] [address] OFFICE [facility] 2022-10-06 2022-10-06 Refill Wolf, [facility] [id number] Univers 00:00:00 00:00:00 [facility] [employer] HEALTH [id number] it y of [place] [id number] Grey as RAVI?BLEA [id number] [address] MEDICAL OFFICE [facility] 2022-10-03 2022-10-03 Refill Wolf, [facility] [id number] Univers 00:00:00 00:00:00 [facility] [employer] HEALTH [id number] it y of [place] [id number] Grey as RAVI?BLEA [id number] [address] MEDICAL OFFICE [facility] 2022-09-29 2022-09-29 Refill Wolf, [facility] [id number] Univers 00:00:00 00:00:00 [facility] [id number] it y of [place] [id number] Grey as RAVI?BLEA [id number] [address] 2022-08-21 2022-08-21 Refill [facility] [id number] Univers 00:00:00 00:00:00 [facility] [id number] it y of [place] [id number] Grey as RAVI?BLEA [id number] [address] 2022-06-22 2022-06-22 Refill [facility] [id number] Univers 00:00:00 00:00:00 [facility] [id number] it y of [place] [id number] Grey as RAVI?BLEA [id number] [address] 2022-06-02 2022-06-02 Outpatient [facility] PRIV PRIV [id number] [facility] 00:00:00 00:00:00 _Fisher_H [id number] [facility] 2022-05-29 2022-05-29 [facility] [id number] Univers 00:00:00 00:00:00 [facility] [id number] it y of [place] [id number] Grey as RAVI?BLEA [id number] [address] 2022-05-28 2022-05-28 [facility] PRIV PRIV [id number] [facility] 00:00:00 00:00:00 [place]ona [id number] Medica l 2022-05-28 2022-05-28 Outpatient Stacey Barragan PRIV PRIV [id number] 00:00:00 00:00:00 [facility] [id number] 2022-05-28 2022-05-28 [facility] [id number] [facility] 00:00:00 00:00:00 [facility] - Medic agueda Barragan MD: GC_SWHAOMC_ [address], [place] [address] , Ph. 2022-05-19 2022-05-19 Memorandum Statement Clerk Lab, Ang - Db [facility] 1.2.840.1 [id number] Univers 10:30:00 10:52:39 Visit Wolf, [facility] 350.1.13.10 ity of [place] 4.2.7.2.686 Grey as RAVI?BLEA [phone] [facility] [address] [facility] OFFICE [facility] 2022-05-19 2022-05-19 Office [facility] 1.2.840.114 [id number] Univers 09:30:00 10:36:17 Visit [facility] 350.1.13.10 it y of [place] 4.2.7.2.686 Grey as RAVI?BLEA [phone] [address] OFFICE [facility] 2022-05-19 2022-05-19 Outpatient R WOLF, [facility] [id number] Univers 09:30:00 10:36:17 [facility] 2022-05-19 2022-05-19 Outpatient R WOLF, [facility] [id number] Univers 10:30:00 10:30:00 [facility] 2022-04-29 2022-04-29 Outpatient _SWHAOMC_ PRIV PRIV [id number] [facility] 00:00:00 00:00:00 Yung_Stacey [id number] Medica l 2022-03-24 2022-03-24 [facility] 1.2.840.114 [id number] Univers 00:00:00 00:00:00 [facility] 350.1.13.10 it y of [place] 4.2.7.2.686 Grey as RAVI?BLEA [phone] [address] OFFICE [facility] 2022-02-27 2022-02-27 [facility] 1.2.840.114 [id number] Univers 00:00:00 00:00:00 [facility] 350.1.13.10 it y of [place] 4.2.7.2.686 Grey as RAVI?BLEA [id number] [address] MEDICAL OFFICE BUILDING 2022-02-17 2022-02-17 [facility]patient [facility] PRIV PRIV [employer] 7130[facility] 11:29:00 11:29:00 Black_D [id number] Medica l 2022-02-17 2022-02-17 Outpatient [facility] PRIV PRIV [facility]30[facility] 11:29:00 11:29:00 Black_D [id number] Medica l 2022-01-14 2022-01-14 [facility] [id number] Univers 11:30:00 11:44:05 [facility] 2022-01-14 2022-01-14 Office [facility] 1.2.840.114 [id number] Univers 11:30:00 11:44:05 Visit [facility] 350.1.13.10 it y of [place] 4.2.7.2.686 Grey as RAVI?BLEA [id number] [address] MEDICAL OFFICE [facility] 2022-01-14 2022-01-14 Outpatient R MARYANN [facility] [id number] Univers 11:30:00 11:30:00 [facility] 2022-01-14 2022-01-14 Orders Doctor ARENAS 1.2.840.114 [id number] Univers 00:00:00 00:00:00 Only Unassigned, GAB 350.1.13.10 ity of [place] [facility] 4.2.7.2.686 Grey as [id number] [address] 2021-11-07 2021-11-07 Refill Kaylyn 1.2.840.1 [id number] Methodi 00:00:00 00:00:[address] 3.430.2.7 Hospit a .3.332005 l .8 2021-10-31 2021-10-31 [facility] 1.2.840.114 [id number] Univers 00:00:00 00:00:00 [facility] 350.1.13.10 i [facility] [place] PROF[place] [phone] [address] 2021-09-03 2021-09-03 Telephone [facility] 1.2.541.115 [id number] Univers 00:00:00 00:00:00 [facility] 350.1.13.10 it y [facility] 4.2.7.2.686 Grey as RAVI?BLEA [phone] [address] OFFICE [facility] 2021-08-27 2021-08-27 Memorandum Statement Clerk Lab, Ang - [facility] 1.2.840.1 14 [id number] Univers 12:13:00 12:28:00 Visit Wolf [facility] 350.1.13.10 ity of [place] 4.2.7.2.686 Grey as RAVI?BLEA [id number] [facility] [address] [facility] OFFICE [facility] 2021-08-27 2021-08-27 Outpatient [facility] [id number] Univers 12:15:00 12:15:00 [facility] 2021-08-27 2021-08-27 Office [facility] 1.2.840.114 [id number] Univers 11:36:21 12:10:02 Visit [facility] 350.1.13.10 it y of [place] 4.2.7.2.686 Grey as RAVI?BLEA [id number] [address] OFFICE [facility] 2021-08-27 2021-08-27 Outpatient [facility] [id number] Univers 11:30:00 12:10:02 [facility] 2021-07-16 2021-07-16 Refill [facility] 1.2.840.114 [id number] Univers 00:00:00 00:00:00 [facility] 350.1.13.10 [place] [phone] [address] 2021-07-12 2021-07-12 Refill [facility] 1.2.840.114 [id number] Univers 00:00:00 00:00:00 Ramoneong [place] 350.1.13.10 i ty [place] [phone] [facility] nal [address] [facility] 2021-04-11 2021-04-11 Telephone [facility] 1.2.914.967 [id number] Univers 00:00:00 00:00:00 Ramoneong [place] 350.1.13.10 i [place] [phone] [facility] nal [address] [facility] 2021-04-02 2021-04-02 Telephone [facility] 1.2.134.529 [id number] Univers 00:00:00 00:00:00 Ramoneong [place] 350.1.13.10 i [place] [phone] [facility] nal [address] [facility] 2021-03-18 2021-03-18 Memorandum Statement Clerk Laura, Waldo Lab Main [facility] 1.2.8 40.114 [id number] Univers 12:18:35 12:33:35 Visit Olimpia Wolf 350.1.13.10 ity of [place] [phone] [facility] [address] [facility] 2021-03-18 2021-03-18 Office [facility] 1.2.840.114 [id number] Univers 10:46:51 12:04:04 Visit Olimpia Rodriguez 350.1.13.10 [place] [phone] [facility] [address] [facility] 2021-03-18 2021-03-18 Outpatient R MARYANN [facility] [id number] Univers 11:00:00 11:00:00 RAMONEONG ity of [facility] 2020-12-07 2020-12-07 Outpatient [facility] [id number] Univers 10:15:00 10:15:00 ity of [facility] 2020-11-29 2020-11-29 Telephone [facility] 1.2.226.315 [id number] Univers 00:00:00 00:00:00 Olimpia MULTISPEC 350.1.13.10 it[place] C[place] [id number] [facility] AND IRVONA [address] [facility] 2020-11-25 2020-11-25 Telephone Maryann [facility] 1.2.070.318 [id number] Univers 00:00:00 00:00:00 Olimpia Rodriguez 350.1.13.10 [place] [phone] [facility] [address] [facility] 2020-11-16 2020-11-16 Outpatient [facility] [id number] Univers 10:40:00 10:40:00 ity of [facility] 2020-11-13 2020-11-13 Memorandum Statement Clerk 2, Adc Lab [facility] 1.2.840.114 [id number] Univers 11:11:48 11:26:48 Visit Olimpia Wolf 350.1.13.10 [place] of [place] [phone] [facility] [address] [facility] 2020-11-13 2020-11-13 Office [facility] 1.2.840.114 [id number] Univers 09:58:03 11:01:10 Visit Olimpia Rodriguez 350.1.13.10 [place] [phone] [facility] [address] [facility] 2020-11-13 2020-11-13 Outpatient R MARYANN [facility] [id number] Univers 10:00:00 10:00:00 RAMONEONG ity [facility] 2020-11-13 2020-11-13 Orders Doctor ARENAS 1.2.840.114 [id number] Univers 00:00:00 00:00:00 Only Unassigned, GAB 350.1.13.10 ity of [place] [facility] 4.2.7.2.686 Grey as [id number] [address] 2020-10-24 2020-10-24 Refill Meño [facility] 1.2.840.114 [id number] Univers 00:00:00 00:00:00 Corinna [place] 350.1.13.10 [place] [phone] [address] 2020-10-04 2020-10-04 [facility]ill [facility] 1.2.840.114 [id number] Univers 00:00:00 00:00:00 Corinna [place] 350.1.13.10 i [place] [phone] [address] 2020-09-21 2020-09-21 Refill Maryann [facility] 1.2.840.114 [id number] Univers 00:00:00 00:00:00 Olimpia Rodriguez 350.1.13.10 [place] [phone] [address] 2020-09-05 2020-09-05 Refjulia WilderLIN[facility] 1.2.840.114 [id number] Univers 00:00:00 00:00:00 Corinna [place] 350.1.13.10 [place] [phone] [address] 2020-07-23 2020-07-23 Orders Doctor DEEPA 1.2.840.114 [id number] Univers 00:00:00 00:00:00 Only Unassigned, GAB 350.1.13.10 ity of [place] [facility] 4.2.7.2.686 Grey as [id number] [address] 2020-07-09 2020-07-09 Office [facility] 1.2.840.114 [id number] Univers 07:56:44 08:55:59 Visit Olimpia Rodriguez 350.1.13.10 [place] [phone] [address] 2020-07-09 2020-07-09 Outpatient R MARYANN [facility] [id number] Univers 08:00:00 08:00:00 OLIMPIA ity [facility] 2020-07-08 2020-07-08 Outpatient R JONATANDARWIN [facility] [id number] Univers 15:00:00 15:00:00 CORINNA ity [facility] 2020-06-23 2020-06-23 Refill [facility] 1.2.840.114 [id number] Univers 00:00:00 00:00:00 Wentong [place] 350.1.13.10 i ty [place] 4[place].2.[place] [phone] [address] 2020-04-27 2020-04-27 Refill [facility] 1.2.840.114 [id number] 00:00:00 00:00:00 Wentong [place] 350.1.13.10 [place] 4.2.7.2.686 Professio [phone] [address] 2020-04-27 2020-04-27 Refill [facility] 1.2.840.114 [id number] Univers 00:00:00 00:00:00 Wentong [place] 350.1.13.10 [place] [phone] [address] 2020-04-17 2020-04-17 Orders Doctor DEEPA 1.2.840.114 [id number] 00:00:00 00:00:00 Only Unassigned, GAB 350.1.13.10 [place] [facility] 4.2.7.2.686 [id number] [facility] 2020-04-17 2020-04-17 Orders Doctor DEEPA 1.2.840.114 [id number] Univers 00:00:00 00:00:00 Only Unassigned, GAB 350.1.13.10 ity of [place] [facility] 4.2.7.2.686 Grey as [id number] [address] 2020-03-31 2020-03-31 Refill Wolf, [facility] 1.2.840.114 [id number] 00:00:00 00:00:00 Wentong [place] 350.1.13.10 [place] 4.2.7.2.686 Professio [id number] [address] 2020-03-31 2020-03-31 Refill Wolf, [facility] 1.2.840.114 [id number] [facility] 00:00:00 00:00:00 Wentong [place] 350.1.13.10 i ty [place] [phone] [address] 2020-03-28 2020-03-28 Refill [facility] 1.2.840.114 [id number] 00:00:00 00:00:00 Corinna [place] 350.1.13.10 [place] 4.2.7.2.686 Professio [phone] [address] 2020-03-28 2020-03-28 Refill [facility] 1.2.840.114 [id number] Univers 00:00:00 00:00:00 Corinna [place] 350.1.13.10 [place] [phone] [address] 2020-03-25 2020-03-25 Office [facility] 1.2.840.114 [id number] 14:12:02 15:08:05 Visit Corinna [place] 350.1.13.10 [place] 4.2.7.2.686 Professio [phone] [address] 2020-03-25 2020-03-25 Office [facility] 1.2.840.114 [id number] [facility] 14:12:02 15:08:05 Visit Corinna [place] 350.1.13.10 i [place]2.[place] [phone] [address] 2020-03-25 2020-03-25 Outpatient R MEÑO [facility] [id number] Univers 14:00:00 14:00:00 [facility] 2020-03-25 2020-03-25 Telephone [facility] 1.2.840.114 [id number] Univers 00:00:00 00:00:00 Corinna [place] 350.1.13.10 [place] [phone] [address] 2020-03-25 2020-03-25 Telephone [facility] 1.2.840.114 [id number] Univers 00:00:00 00:00:00 Corinna [place] 350.1.13.10 [place].2.[place] [phone] [address] 2020-03-19 2020-03-19 Outpatient R MARYANN [facility] [id number] Univers 11:00:00 11:00:00 OLIMPIA [facility] 2020-01-11 2020-01-11 Refill [facility] 1.2.840.114 [id number] Univers 00:00:00 00:00:00 Wentong [place] 350.1.13.10 [place] [id number] [address] 2020-01-05 2020-01-05 [facility]ill [facility] 1.2.840.114 [id number] Univers 00:00:00 00:00:00 Wentong [place] 350.1.13.10 [place] ty [place].2.[place] [phone] [address] 2019-12-11 2019-12-11 Refjulia [facility] 1.2.840.114 [id number] Univers 00:00:00 00:00:00 Wentong [place] 350.1.13.10 [place] ty [place] 4[place].2.[place] [phone] [address] 2019-11-17 2019-11-17 Ref[facility]ia [facility] 1.2.840.114 [id number] Univers 00:00:00 00:00:00 Olimpia Rodriguez 350.1.13.10 i ty of [place] [phone] [address] 2019-11-15 2019-11-15 Office [facility] 1.2.840.114 [id number] Univers 10:26:23 11:26:21 Visit Olimpia Rodriguez 350.1.13.10 [place] [phone] [address] 2019-11-15 2019-11-15 Outpatient R MARYANN [facility] [id number] Univers 10:30:00 10:30:00 [facility] ity [facility] 2019-11-09 2019-11-09 Refill [facility] 1.2.840.114 [id number] Univers 00:00:00 00:00:00 Olimpia Rodriguez 350.1.13.10 [place] ty [place]2.[place] [phone] [address] 2019-04-16 2019-04-16 Refjulia [facility] 1.2.840.114 [id number] Univers 00:00:00 00:00:00 Cecy Rodriguez 350.1.13.10 i ty of [place] [phone] [address] Results Test Description Test Time Test Comments Results Result Comments Source POCT HEMOGLOBIN A1C TEST 2022-11-17 15:24:00 Test Item Value Reference Range Interpretation Comme nts POCT HBA1C (test code = 4548-4) 7.4 % 4-6 A Lab Interpretation (test code = 98782-1) Abnormal [facility] HEMOGLOBIN A1C [id number] 15:24:00 Test Item Value Reference Range Interpretation Comments POCT HBA1C (test code = 4548-4) 7.4 % 4-6 A Lab Interpretation (test code = Abnormal 73155-0) [facility] HEMOGLOBIN A1C [id number] 14:59:00 Test Item Value Reference Range Interpretation Comments POCT HBA1C (test code = 4548-4) 7.0 % 4-6 A Lab Interpretation (test code = Abnormal 12201-8) [facility] [id number] 14:59:00 Test Item Value Reference Range Interpretation Comments POCT HBA1C (test code = 4548-4) 7.0 % 4-6 A Lab Interpretation (test code = Abnormal 62843-2) [facility]
[2022-11-19] MEDS ORDERED: hydrOXYzine HCL 25 MG TAB ONE (09:04)
[2022-11-19 09:21] LABS: Absolute Lymphocytes (CBC) 1.5 K/uL (0.7-4.9); Hematocrit 44.3 % (36.0-45.0); Lymphocytes % 22.7 % (15.3-44.8); MPV 8.7 fL (7.6-11.3); RBC Red Blood Cell Count 4.97 M/uL (3.86-4.86)
[2022-11-19 09:29] LABS: Potassium 3.9 mmol/L (3.5-5.1)
[2022-11-19] MEDS ORDERED: NA CHLORIDE 0.9% 500 ML ONE (09:44)
--- NOTE | 2022-11-19 09:50 | RAD REPORT ---
EXAM DESCRIPTION: US - Extremity Venous Uni Ltd - 11/19/2022 9:33 am CLINICAL HISTORY: Swelling, pain COMPARISON: None. TECHNIQUE: Real-time sonographic evaluation of the left lower extremity deep venous system was perfo rmed. FINDINGS: Normal compressibility, flow augmentation, phasic flow and spontaneous flow is identified in the left lower extremity deep venous system. No intraluminal filling defects seen. IMPRESSION: No DVT in the left lower extremity.
[2022-11-19] MEDS ORDERED: CEPHALEXIN 250 MG CAP ONE (10:04)
[2022-11-19] MEDS ORDERED: DIPHENHYDRAMINE 50 MG/ML VIAL ONE (10:04)
[2022-11-19] MEDS ORDERED: FAMOTIDINE 20 MG/2 ML VIAL IV ONE (10:04)
--- NOTE | 2022-11-19 10:35 | ER ---
Nurse's Notes [facility] Name: Mary Baxter Age: 67 yrs Sex: Female : 1955 Arrival Date: 11/19/2022 Time: 08:46 Bed 14 Private MD: Pablo Hoskins T Diagnosis: Cellulitis of left lower limb Presentation: 11/19 09:07 Chief complaint: Patient states: Leg swelling since this morning. Coronavirus screen: ld1 At this time, the client does not indicate any symptoms associated with coronavirus-19. Ebola Screen: No symptoms or risks identified at this time. Initial Sepsis Screen: Does the patient meet any 2 criteria? No. Patient's initial sepsis screen is negative. Does the patient have a suspected source of infection? No. Patient's initial sepsis screen is negative. Risk Assessment: Do you want to hurt yourself or someone else? Patient reports no desire to harm self or others. Onset of symptoms was November 19, 2022 at 09:08. 09:07 Method Of Arrival: Ambulatory ld1 09:07 Acuity: TALAT 3 ld1 Triage Assessment: 09:08 General: Appears in no apparent distress. comfortable, Behavior is calm, cooperative, ld1 appropriate for age. Pain: Denies pain. EENT: No signs and/or symptoms were reported regarding the EENT system. Neuro: Level of Consciousness is awake, alert, obeys commands, Oriented to person, place, time, situation. Cardiovascular: Capillary refill < 3 seconds Patient's skin is warm and dry. Respiratory: Airway is patent Respiratory effort is even, unlabored. Historical: - Allergies: 09:08 Lodine; ld1 09:08 Phenergan; ld1 09:08 Codeine; ld1 - PMHx: 09:08 Diabetes mellitus; Hypothyroidism; Hypertensive disorder; ld1 - PSHx: 09:08 None; ld1 - Immunization history:: Adult Immunizations up to date, Client reports receiving the 2nd dose of the Covid vaccine. - Social history:: Smoking status: Patient denies any tobacco usage or history of. Patient/guardian denies using alcohol. Screenin:04 [facility] ED Fall Risk Assessment (Adult) History of falling in the last 3 months, ld1 including since admission No falls in past 3 months (0 pts). Abuse screen: Denies threats or abuse. Denies injuries from another. Nutritional screening: No deficits noted. Tuberculosis screening: No symptoms or risk factors identified. Assessment: 09:04 General: Appears in no apparent distress. comfortable, Behavior is calm, cooperative, ld1 appropriate for age. Pain: Denies pain. Neuro: Level of Consciousness is awake, alert, obeys commands, Oriented to person, place, time, situation. Cardiovascular: Capillary refill < 3 seconds Patient's skin is warm and dry. Respiratory: Airway is patent Respiratory effort is even, unlabored. GI: Abdomen is flat, non-distended. : No signs and/or symptoms were reported regarding the genitourinary system. EENT: No signs and/or symptoms were reported regarding the EENT system. Derm: Reports itching. Musculoskeletal: No signs and/or symptoms reported regarding the musculoskeletal system. Vital Signs: 09:07 BP 118 / 75; Pulse 78; Resp 18; Temp 98.1(O); Pulse Ox 100% on R/A; Weight 62.6 kg; ld1 Height 5 ft. 0 in. (152.40 cm); Pain 0/10; 10:22 BP 132 / 90; Pulse 81; Resp 18; Pulse Ox 100% on R/A; ld1 09:07 Body Mass Index 26.95 (62.60 kg, 152.40 cm) ld1 ED Course: 08:46 Patient arrived in ED. mr 08:47 Pablo Hoskins MD is Private Physician. mr 08:47 Lisa Medrano FNP-C is [facility]. kb 08:47 George Ruth MD is Attending Physician. kb 08:54 Vania Blanco, JONAS is Primary Nurse. ld1 09:03 Basic Metabolic Panel Sent. ld1 09:03 CBC with Diff Sent. ld1 09:04 No provider procedures requiring assistance completed. Inserted saline lock: 20 gauge ld1 in right antecubital area, using aseptic technique. Blood collected. 09:04 Patient has correct armband on for positive identification. Placed in gown. Bed in low ld1 position. Call light in reach. Side rails up X2. engine monitor on. Pulse ox on. NIBP on. Door closed. Noise minimized. Warm blanket given. 09:08 Triage completed. ld1 09:08 Arm band placed on right wrist. ld1 09:35 US Extremity Venous Unilateral Ltd In Process Unspecified. EDMS 10:44 IV discontinued, intact, bleeding controlled, No redness/swelling at site. ld1 Administered Medications: 09:03 Drug: Atarax (hydrOXYzine) 25 mg Route: PO; ld1 09:35 Follow up: Response: No adverse reaction ld1 09:45 Drug: NS 0.9% 500 ml Route: IV; Rate: bolus; Site: right antecubital; ld1 10:05 Drug: Pepcid (famotidine) 20 mg Route: IVP; Site: right antecubital; ld1 10:05 Drug: Benadryl (diphenhydrAMINE) 12.5 mg Route: IVP; Site: right antecubital; ld1 10:05 Drug: KeFLEX (cephalexin) 500 mg Route: PO; ld1 Medication: 09:04 VIS not applicable for this client. ld1 Outcome: 10:34 Discharge ordered by MD. kb 10:34 Condition: stable ld1 10:44 Discharged to home ambulatory. ld1 10:44 Discharge instructions given to patient, Instructed on discharge instructions, follow up and referral plans. medication usage, Demonstrated understanding of instructions, follow-up care, medications, Prescriptions given X 1. 10:44 Patient left the ED. ld1 Signatures: Dispatcher [employer] EDLisa Taveras, SKIN CARVER-C SKIN CARVER-[place] Girard Lauren, RN RN ld1 Corrections: (The following items were deleted from the chart) 09:09 09:08 PMHx: Diabetes - NIDDM; ld1 ld1 09:09 09:08 PMHx: Hypertension; ld1 ld1 09: 09:08 PMHx: Hypothyroidism; ld1 ld1 09:10 09:07 Chief complaint: Patient states: Leg swelling since this morning ld1 ld1
--- NOTE | 2022-11-19 10:35 | EDPHYS ---
Physician Documentation [facility] Name: Mary Baxter Age: 67 yrs Sex: Female : 1955 Arrival Date: 11/19/2022 Time: 08:46 Bed 14 Private MD: Pablo Hoskins T ED Physician George Ruth HPI: 11/19 09:07 This 67 yrs old Female presents to ER via Unassigned with complaints of Leg kb Swelling. 09:07 the patient presents with a swollen area of the left leg. Description: erythematous, kb hot. Onset: The symptoms/episode began/occurred this morning. Possible cause(s): unknown. Associated signs and symptoms: Pertinent positives: erythema, swelling. Modifying factors: the symptoms are alleviated by nothing, the symptoms are aggravated by nothing. Severity of symptoms: At their worst the symptoms were mild, moderate, in the emergency department the symptoms are unchanged. The patient has not experienced similar symptoms in the past. The patient has not recently seen a physician. Historical: - Allergies: 09:08 Lodine; ld1 09:08 Phenergan; ld1 09:08 Codeine; ld1 - PMHx: 09:08 Diabetes mellitus; Hypothyroidism; Hypertensive disorder; ld1 - PSHx: 09:08 None; ld1 - Immunization history:: Adult Immunizations up to date, Client reports receiving the 2nd dose of the Covid vaccine. - Social history:: Smoking status: Patient denies any tobacco usage or history of. Patient/guardian denies using alcohol. ROS: 09:06 Constitutional: Negative for fever, chills, and weight loss. kb 09:06 MS/extremity: Positive for erythema, swelling, tenderness. 09:06 All other systems are negative. Exam: 09:06 Constitutional: This is a well developed, well nourished patient who is awake, alert, kb and in no acute distress. Head/Face: Normocephalic, atraumatic. ENT: Moist Mucous membranes Cardiovascular: Regular rate and rhythm with a normal S1 and S2. No gallops, murmurs, or rubs. No pulse deficits. Respiratory: Respirations even and unlabored. No increased work of breathing. Talking in full sentences Abdomen/GI: Soft, non-tender. No distention Neuro: Awake and alert, GCS 15, oriented to person, place, time, and situation. Moves all extremities. Normal gait. Psych: Awake, alert, with orientation to person, place and time. Behavior, mood, and affect are within normal limits. 09:06 Musculoskeletal/extremity: Extremities: grossly normal except: noted in the left leg: erythema, swelling, ROM: intact in all extremities, Circulation is intact in all extremities. Sensation intact. Weight bearing: able to fully bear weight, DVT Exam: swelling, tenderness, erythema, increased warmth. 09:06 Skin: cellulitis, that is mild, on the left leg. Vital Signs: 09:07 BP 118 / 75; Pulse 78; Resp 18; Temp 98.1(O); Pulse Ox 100% on R/A; Weight 62.6 kg; ld1 Height 5 ft. 0 in. (152.40 cm); Pain 0/10; 10:22 BP 132 / 90; Pulse 81; Resp 18; Pulse Ox 100% on R/A; ld1 09:07 Body Mass Index 26.95 (62.60 kg, 152.40 cm) ld1 MDM: 08:52 Patient medically screened. kb 09:06 Data reviewed: vital signs, nurses notes. kb 09:07 Differential diagnosis: allergic reaction, cellulitis, dvt. kb 09:59 ED course: Patient is a 67-year-old female presents for left leg swelling, erythema and kb itching that started this morning. Denies fever. On exam patient has mild cellulitis to left lower extremity. Respirations even and unlabored, lungs clear bilaterally. Nontoxic in appearance. Ambulates with steady gait. Ultrasound ordered to rule out DVT which was negative. Serum labs done and reviewed. Patient now complaining of itching to neck. States this happens every few days where she stands itching all over, normally takes Zyrtec for this and it keeps it under control. Will give Pepcid and Benadryl for the itching and Keflex for the cellulitis. Patient educated on need for follow-up with PCP and on return precautions.. 10:01 Care significantly affected by the following chronic conditions: Diabetes. Counseling: roman I had a detailed discussion with the patient and/or guardian regarding: the historical points, exam findings, and any diagnostic results supporting the discharge/admit diagnosis, lab results, radiology results, the need for outpatient follow up, a family practitioner, to return to the emergency department if symptoms worsen or persist or if there are any questions or concerns that arise at home. 11/19 08:53 Order name: IV Start; Complete Time: 09:03 kb 11/19 08:53 Order name: CBC with Diff; Complete Time: 09:25 kb 11/19 08:53 Order name: Basic Metabolic Panel; Complete Time: 09:38 kb 11/19 08:53 Order name: US Extremity Venous Unilateral Ltd; Complete Time: 09:57 kb Administered Medications: 09:03 Drug: Atarax (hydrOXYzine) 25 mg Route: PO; ld1 09:35 Follow up: Response: No adverse reaction ld1 09:45 Drug: NS 0.9% 500 ml Route: IV; Rate: bolus; Site: right antecubital; ld1 10:05 Drug: Pepcid (famotidine) 20 mg Route: IVP; Site: right antecubital; ld1 10:05 Drug: Benadryl (diphenhydrAMINE) 12.5 mg Route: IVP; Site: right antecubital; ld1 10:05 Drug: KeFLEX (cephalexin) 500 mg Route: PO; ld1 Disposition: 17:26 Co-signature as Attending Physician, George Ruth MD I reviewed the patient's care rn provided by the Advanced Practice Provider and agree with the diagnosis and treatment plan. Disposition Summary: 11/19/22 10:34 Discharge Ordered Location: Home kb Condition: Stable kb Diagnosis - Cellulitis of left lower limb kb Followup: kb - With: Emergency Department - When: As needed - Reason: Worsening of condition Followup: kb - With: Private Physician - When: 2 - 3 days - Reason: Recheck today's complaints, Continuance of care, Re-evaluation by your physician Discharge Instructions: - Discharge Summary Sheet kb - Cellulitis, Adult, [id number] kb Forms: - Medication Reconciliation Form kb - Thank You Letter kb - Antibiotic Education kb - Prescription Opioid Use kb Prescriptions: - Cephalexin 500 mg Oral Capsule - take 1 capsule by ORAL route every 8 hours for 10 days; 30 capsule; Refills: 0, kb Product Selection Permitted Signatures: Dispatcher [employer] Lisa Farooq FNP-C FNP-George Rivera MD MD rn Dibbern, Lauren, RN RN ld1 Corrections: (The following items were deleted from the chart) PMHx: Diabetes - NIDDM; ld1 ld1 PMHx: Hypertension; ld1 ld1 PMHx: Hypothyroidism; ld1 ld1
[2022-11-19 10:48] VITALS: TEMP 98.1; O2SAT 100
[2022-11-19 10:49] VITALS: BP 132/90
== END 2022-11-19 10:44 | disposition home or self-care (01) ==
LOC: ER 08:43
DX: L03.116 Cellulitis of left lower limb (principal); I10 Essential (primary) hypertension; E11.9 Type 2 diabetes mellitus without complications; Z88.5 Allergy status to narcotic agent; Z88.8 Allergy status to other drugs, medicaments and biological substances; Z91.048 Other nonmedicinal substance allergy status
CPT/HCPCS: 85025; 80048; 36415; 93971; 96375; 96374; 99284; J1200; J7040

== ENCOUNTER 2024-12-16 02:58 | Emergency (ER) | payer OTHER ==
--- OUTSIDE RECORDS SUMMARY | 2024-12-16 03:01 | XMS REPORT | Clinical Summary ---
Author Name Unknown Organization [facility] Address [address] [place] [address] Care Team Providers Care Glass Silverer Name Role Phone Vivian Ramos MD Primary Care Provider + [phone] Kenzie Duggan MD Unavailable Kenzie Duggan MD Unavailable Allergies Active Allergy Reactions Criticality Noted Date Comments Etodolac 08/26/2016 Promethazine 08/26/2016 Medications * This document contains information received from the source organization and may not represent a complete record from that organization. calcium carbonate (CALCIUM 600) 600 mg (1,500 mg) tablet Take 1 tablet by mouth daily. Active hydrOXYzine pamoate (VISTARIL) 25 mg capsule Take 1 capsule by mouth daily. Active lisinopril (PRINIVIL,ZESTR IL) 20 mg tablet Take 1 tablet by mouth daily. Active lithium (LITHANE) 300 mg tablet Take 1 tablet by mouth daily. Active LORazepam (ATIVAN) 1 mg tablet Take 1 tablet by mouth daily. Active metFORMIN (GLUCOPHAGE-XR) 500 mg 24 hr tablet Take 1,000 mg by mouth 2 (two) times a day with meals. Active VIIBRYD 40 mg tab Take 1 tablet by mouth daily. 6 Active zolpidem (AMBIEN) 10 mg tablet Take 1 tablet by mouth daily. 6 Active pioglitazone (ACTOS) 30 mg tablet Take 1 tablet by mouth daily. Active ARIPiprazole (ABILIFY) 15 MG tablet Take 1 tablet by mouth daily. 7 Active citalopram (CeleXA) 10 mg tablet Take 1 tablet by mouth daily. 7 Active estradiol (ESTRACE) 0.1 mg/g (0.01%) vaginal creamIndication s:Mild vaginal dysplasia INSERT 1 GRAM VAGINALLY 3 TIMES PER WEEK (WEDNESDAY, WEDNESDAY AND WEDNESDAY) 42.5 g 3 8 Active GLIPIZIDE ORAL Take 2 mg by mouth daily. Active dapagliflozin (FARXIGA) 10 mg tab Take 10 mg by mouth twice daily. Active levothyroxine sodium (LEVOTHYROXINE ORAL) Take 110 mg by mouth daily. 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 Surgical [...] 0 (1 standard drink = 0.6 oz pur e alcohol) wine cooler 2-3 once a month Comments No Sex and Gender Information Value Date Recorded Sex Assigned at Not on file Legal Sex Female 3:56 PM CDT Gender Identity Not on file Sexual Orientation Not on file Obstetrics History Para Term AB IAB SAB Ectopic Multiple Livin g Live Births 2 2 2 2 Date Outcome GA Total Labor Labor/2nd/3rd Weight Sex Type Anes PTL Alina A1 A5 Name Clin Term Vag-Spo nt Term Vag-Spo nt Plan of Treatment Health Maintenance Due Date Last Done Comments Pneumococcal Vaccine: 50+ Years (1 of 1 - PCV) 007 COVID-19 Vaccine ( season) 2024 Influenza Vaccine (#1) 2024 Insurance MEDICARE PART A AND B MEDICARE PART A AND B Care Teams Glass Silverer Relationship Specialty Start Date End Date Vivian Ramos MD [email or web address] PCP - General Gynecologic Medical Oncology 07/24/16 Kenzie Duggan MD [address] [place] [id number] PCP - External Referring Obstetrics/Gynecology 07/24/16 Kenzie Duggan MD [address] [place] [id number] PCP - External Follow Up A Obstetrics/Gynecology 07/24/16
--- NOTE | 2024-12-16 04:26 | ER ---
Nurse's Notes [facility] Name: Mary Rose Age: 69 yrs Sex: Female : 1955 Arrival Date: 12/16/2024 Time: 02:58 Bed 8 Private MD: Diagnosis: Pain in right foot-right heel Presentation: 12/16 03:26 Chief complaint: Patient states: right foot, above heel hurts. Coronavirus screen: kj2 Client denies travel out of the [place] in the last 14 days. Ebola Screen: No symptoms or risks identified at this time. Risk Assessment: Do you want to hurt yourself or someone else? Patient reports no desire to harm self or others. Onset of symptoms was November 17, 2024. 03:26 Method Of Arrival: Ambulatory kj2 03:26 Acuity: TALAT 3 kj2 05:06 Initial Sepsis Screen: Does the patient meet any 2 criteria? No. Patient's initial cp4 sepsis screen is negative. Does the patient have a suspected source of infection? No. Patient's initial sepsis screen is negative. Triage Assessment: 03:28 General: Appears in no apparent distress. Behavior is calm, cooperative. Pain: kj2 Complains of pain in right foot above heel Pain currently is 10 out of 10 on a pain scale. Neuro: Level of Consciousness is awake, alert, obeys commands, Oriented to person, place, time, situation. Cardiovascular: Patient's skin is warm and dry. Respiratory: Airway is patent. GI: No signs and/or symptoms were reported involving the gastrointestinal system. : No signs and/or symptoms were reported regarding the genitourinary system. Historical: - Allergies: 03:28 Codeine; kj2 03:28 Lodine; kj2 03:28 Phenergan; kj2 - PMHx: 03:28 diabetes mellitus; Hypertensive disorder; Hypothyroidism; kj2 - Immunization history:: Adult Immunizations unknown. - Infectious Disease History:: Denies. - Social history:: Smoking status: Patient reports the use of cigarette tobacco products, smokes one-half pack cigarettes per day. Screenin:30 [facility] ED Fall Risk Assessment (Adult) History of falling in the last 3 months, cp4 including since admission No falls in past 3 months (0 pts) Confusion or Disorientation No (0 pts) Intoxicated or Sedated No (0 pts) Impaired Gait No (0 pts) Mobility Assist Device Used No (0 pt) Altered Elimination No (0 pt) Score/Fall Risk Level 0 - 2 = Low Risk Oriented to surroundings, Maintained a safe environment, Assessed \T\ reinforced patient's understanding of fall precautions, Hourly rounding (assess needs \T\ fall precautionary measures) done. Abuse screen: Denies threats or abuse. Denies injuries from another. Nutritional screening: No deficits noted. Tuberculosis screening: No symptoms or risk factors identified. Assessment: 03:30 General: Appears in no apparent distress. comfortable, Behavior is calm, cooperative, cp4 appropriate for age. Pain: Complains of pain in right foot Pain does not radiate. Pain currently is 10 out of 10 on a pain scale. Neuro: Level of Consciousness is awake, alert, obeys commands, Oriented to person, place, time, situation. Cardiovascular: Patient's skin is warm and dry. Respiratory: Airway is patent Respiratory effort is even, unlabored. GI: No signs and/or symptoms were reported involving the gastrointestinal system. : No signs and/or symptoms were reported regarding the genitourinary system. EENT: No signs and/or symptoms were reported regarding the EENT system. Derm: No signs and/or symptoms reported regarding the dermatologic system. Musculoskeletal: Reports pain in right foot. Vital Signs: 03:26 Weight 63.5 kg; Height 5 ft. 4 in. ; Pain 10/10; kj2 03:30 BP 138 / 76; Pulse 79; Resp 18; Temp 98.2; Pulse Ox 96% on R/A; kj2 05:04 BP 118 / 70; Pulse 73; Resp 18; Pulse Ox 95% ; cp4 03:26 Body Mass Index 24.03 (63.50 kg, 162.56 cm) kj2 03:26 Pain Scale: Adult kj2 ED Course: 02:59 Patient arrived in ED. jj6 03:15 Talon Luu PA is PHCP. cp 03:15 Talon Phipps MD is Attending Physician. cp 03:28 Triage completed. kj2 03:30 Fe Hernández is Primary Nurse. cp4 03:30 Bed in low position. Call light in reach. Side rails up X 1. cp4 03:30 No provider procedures requiring assistance completed. cp4 04:11 XRAY Heel Os Calcis (calcaneus) In Process Unspecified. EDMS 04:24 John Mcleod DPM is Referral Physician. cp 05:05 Provided Education on: heel spur. cp4 05:05 Arm band placed on right wrist. Patient placed in waiting room. cp4 05:05 Patient did not have IV access during this emergency room visit. cp4 Administered Medications: 04:57 Drug: Ibuprofen PO 800 mg PO once; may give if not allergic Route: PO; cp4 05:04 Follow up: Response: No adverse reaction cp4 04:57 Drug: HYDROcodone-acetaminophen PO 5 mg-325 mg 1 tabs PO once Route: PO; cp4 05:04 Follow up: Response: No adverse reaction cp4 Medication: 03:30 VIS not applicable for this client. cp4 Outcome: 04:26 Discharge ordered by MD. cp 05:05 Discharged to home ambulatory, cp4 05:05 Condition: stable 05:05 Discharge instructions given to patient, Instructed on discharge instructions, follow up and referral plans. medication usage, Demonstrated understanding of instructions, follow-up care, medications, Prescriptions given X 1, 05:06 Patient left the ED. cp4 Signatures: Dispatcher [employer] EDMS Talon Luu PA PA cp Jeffries, Jennifer jj6 Fe Hernández cp4 Mery Mosley, RN RN kj2
--- NOTE | 2024-12-16 04:26 | EDPHYS ---
Physician Documentation [facility] Name: Mary Rose Age: 69 yrs Sex: Female : 1955 Arrival Date: 12/16/2024 Time: 02:58 Bed 8 Private MD: ED Physician Talon Phipps HPI: 12/16 03:35 This 69 yrs old Female presents to ER via Ambulatory with complaints of cp HEEL/ACHILLIES PAIN. 03:35 The patient presents with pain. The complaints affect the heel of right foot. cp 03:35 Context: resulted from an unknown cause, the patient can fully bear weight, the patient cp is able to ambulate, with moderate difficulty. Onset: The symptoms/episode began/occurred for past several months. Associated signs and symptoms: The patient has no apparent associated signs or symptoms. 03:35 Severity of symptoms: in the emergency department the symptoms are unchanged, despite cp home interventions. Historical: - Allergies: 03:28 Codeine; kj2 03:28 Lodine; kj2 03:28 Phenergan; kj2 - PMHx: 03:28 diabetes mellitus; Hypertensive disorder; Hypothyroidism; kj2 - Immunization history:: Adult Immunizations unknown. - Infectious Disease History:: Denies. - Social history:: Smoking status: Patient reports the use of cigarette tobacco products, smokes one-half pack cigarettes per day. ROS: 03:40 MS/extremity: Positive for pain, of the heel of right foot, Negative for injury or cp acute deformity, 03:40 Constitutional: history per hpi 03:40 Neuro: Negative for numbness, weakness, 03:40 All other systems are negative, Exam: 03:45 Constitutional: The patient appears in no acute distress, alert, awake, non-toxic, well cp developed, well nourished, uncomfortable, 03:45 Head/Face: Normocephalic, atraumatic. cp 03:45 Chest/axilla: Inspection: normal, 03:45 Cardiovascular: Rate: normal, 03:45 Respiratory: the patient does not display signs of respiratory distress, 03:45 Musculoskeletal/extremity: Extremities: noted in the heel of right foot: pain, tenderness posterior aspect of heel at Achilles insertion, mild swelling, ROM: limited active range of motion due to pain, in the dorsal extension of right foot, Perfusion: the extremity is normally perfused throughout, the right foot Sensation intact. 03:45 Skin: cellulitis, is not appreciated, no rash present. Vital Signs: 03:26 Weight 63.5 kg; Height 5 ft. 4 in. ; Pain 10/10; kj2 03:30 BP 138 / 76; Pulse 79; Resp 18; Temp 98.2; Pulse Ox 96% on R/A; kj2 05:04 BP 118 / 70; Pulse 73; Resp 18; Pulse Ox 95% ; cp4 03:26 Body Mass Index 24.03 (63.50 kg, 162.56 cm) kj2 03:26 Pain Scale: Adult kj2 MDM: 03:20 Medical Screening Exam initiated cp 03:40 Differential diagnosis: fracture, foreign body, penetrating trauma, gout, cellulitis. cp 04:25 Data reviewed: vital signs, nurses notes, radiologic studies, plain films, and as a cp result, I will discharge patient. 04:57 Counseling: I had a detailed discussion with the patient and/or guardian regarding the cp historical points, exam findings, and any diagnostic results supporting the discharge/admit diagnosis, radiology results, to return to the emergency department if symptoms worsen or persist or if there are any questions or concerns that arise at home. 04:57 Response to treatment: the patient's symptoms have mildly improved after treatment, and cp as a result, I will discharge patient. 12/16 03:33 Order name: XRAY Heel Os Calcis (calcaneus) cp Administered Medications: 04:57 Drug: Ibuprofen PO 800 mg PO once; may give if not allergic Route: PO; cp4 05:04 Follow up: Response: No adverse reaction cp4 04:57 Drug: HYDROcodone-acetaminophen PO 5 mg-325 mg 1 tabs PO once Route: PO; cp4 05:04 Follow up: Response: No adverse reaction cp4 Disposition Summary: 12/16/24 04:26 Discharge Ordered Notes: Location: Home cp Problem: new cp Symptoms: have improved cp Condition: Stable cp Diagnosis - Pain in right foot - right heel cp Followup: cp - With: John Mcleod DPM - When: 1 week - Reason: Recheck today's complaints Discharge Instructions: - Discharge Summary Sheet cp - Heel Spur cp - Form - Excuse from Work, School, or Physical Activity cp - Foot Pain cp Forms: - Medication Reconciliation Form cp - Antibiotic Education cp - Prescription Opioid Use cp - Patient Portal Instructions cp - Leadership Thank You Letter cp Prescriptions: - Celebrex 100 mg Oral capsule - take 1 tablet ORAL route every 12 hours As needed take with food; 30 capsule; cp Refills: 0, Product Selection Permitted Addendum: 12/19/2024 15:38 Co-signature as Attending Physician, Talon Phipps MD I agree with the assessment and c dodd plan of care. Signatures: Dispatcher [employer] [facility] Talon Phipps MD MD cha Page, Corey, PA PA cp Fe Hernández cp4 Mery Mosley, RN RN kj2 Corrections: (The following items were deleted from the chart) 12/16 03:34 03:34 Os Calcis (Calcaneus) Heel+RAD.RAD.BRZ ordered. [facility] 04:50 03:56 Walking boot ordered. cp cp4 12/17 03:24 03:23 MS/extremity: Positive for pain, of the heel of right foot, Negative for injury cp or acute deformity, cp 03:24 03:23 Constitutional: history per hpi cp cp 03:24 03:23 Neuro: Negative for numbness, weakness, cp cp 03:24 03:23 All other systems are negative, cp cp
[2024-12-16] MEDS ORDERED: IBUPROFEN 400 MG TAB ONE (04:43)
[2024-12-16] MEDS ORDERED: HYDROCODONE/APAP 5/325 MG TAB ONE (04:43)
[2024-12-16 05:27] VITALS: TEMP 98.2
[2024-12-16 05:28] VITALS: BP 118/70; O2SAT 95
--- NOTE | 2024-12-16 06:28 | RAD REPORT ---
EXAM: XR Right Calcaneus, 2 or More Views CLINICAL HISTORY: The patient is 69 years old and is Female; Pain. TECHNIQUE: Two views of the right calcaneus. COMPARISON: No relevant prior studies available. FINDINGS: Bones/joints: Large calcaneus spur. No acute fracture. Achilles enthesophyte. No dislocation. Soft tissues: Unremarkable. No radiopaque foreign body. IMPRESSION: Large calcaneus spur. No acute fracture. Electronically signed by: Caren Floyd MD 12/16/2024 04:40 AM CDT RP V2 Due to temporary technical issues with the PACS/[employer] reporting system, reports are being aurelio d by the in-house radiologist without review as a courtesy to ensure prompt reporting the interpreting radiologist is fully responsible for the content of the report. Transcribed Date/Time: 12/16/2024 6:28 AM
== END 2024-12-16 05:06 | disposition home or self-care (01) ==
LOC: ER 02:58
DX: M79.671 Pain in right foot (principal); F17.210 Nicotine dependence, cigarettes, uncomplicated
CPT/HCPCS: 73650; 99283